=== PATIENT | male | born 1940 | race Caucasian/White ===

== ENCOUNTER 2017-10-29 13:05 | Day surgery (SDC) | payer MEDICARE ==
[~2017-10-29] VITALS: Ht 180.3 cm; Wt 81.0 kg
[2017-10-29] VITALS (12 sets, daily range): BP systolic 62–139; BP diastolic 52–98
[~2017-10-29 13:05] MED LIST: ceFAZolin INJECTION 1,000 MG in NS (IVPB) 50 ML IV SCH
[2017-10-29 13:43] LABS: HEMOGLOBIN 14.2 G/DL (13.3-17.7); MEAN PLATELET VOLUME 11.3 FL (7.4-10.4); RED BLOOD COUNT 4.52 10^6/uL (4.35-5.85); RED CELL DISTRIBUTION WIDTH 13.4 % (10.0-14.5); WHITE BLOOD COUNT 19.6 10^3/uL (4.3-11.0)
--- NOTE | 2017-10-29 13:46 | Diagnostic Imaging Report ---
EXAMINATION: PA and lateral chest obtained at 148. INDICATION: Preop pacemaker insertion. There are no prior studies available for comparison. The heart size is within normal limits. The lungs are clear. There is no sign of failure, pneumonia or a pleural effusion to indicate an acute abnormality. There are a few coarse bronchovascular markings in the right infrahilar region. These are probably long-standing in nature. If previous studies are available they would be helpful for comparison. The mediastinum is not widened. The osseous structures are intact. IMPRESSION: 1. There is no evidence for an acute cardiopulmonary abnormality. 2. If previous studies are available they would be helpful comparison. Dictated by: Dictated on workstation # [id number]
[2017-10-29 13:56] LABS: PROTHROMBIN TIME PATIENT 13.6 SEC (12.2-14.7)
[2017-10-29 14:06] LABS: ALANINE AMINOTRANSFERASE 119 U/L (0-55); ALBUMIN 4.2 GM/DL (3.2-4.5); ALKALINE PHOSPHATASE 57 U/L (40-136); BILIRUBIN,TOTAL 0.6 MG/DL (0.1-1.0); BUN/CREATININE RATIO 19; CALCIUM 9.5 MG/DL (8.5-10.1); CARBON DIOXIDE 26 MMOL/L (21-32); CHLORIDE 110 MMOL/L (98-107); GFR ESTIMATED > 60; GLUCOSE 109 MG/DL (70-105); POTASSIUM 4.8 MMOL/L (3.6-5.0); SODIUM 142 MMOL/L (135-145); TOTAL PROTEIN 6.9 GM/DL (6.4-8.2)
[2017-10-29] MEDS ORDERED: [UNRECOGNIZED DRUG - REMARK] INJ (15:05)
[2017-10-29] MEDS ORDERED: ESOM20CA58 PO (15:05)
[2017-10-29] MEDS ORDERED: NAPR1TAB25 PO (15:05)
[2017-10-29] MEDS ORDERED: ZINC50TA2 PO (15:05)
[2017-10-29] MEDS ORDERED: SILD100T67 PO (15:11)
[2017-10-29] MEDS ORDERED: NS IV 1000 ML 1,000 ML IV SCH ×2 (16:15→20:26)
[2017-10-29] MEDS ORDERED: CATHETER FLUSH 10 ML SYR IV PRN (16:15)
[2017-10-29] MEDS ORDERED: DOXYCYCLINE INJECTION 100 MG in NS (IVPB) 100 ML IV NR (16:15)
--- NOTE | 2017-10-29 17:06 | Diagnostic Imaging Report ---
EXAM: Right upper quadrant ultrasound. DATE: October 29, 2017. COMPARISON: Ultrasound abdomen complete, 06/06/2009. INDICATION: 77-year-old male, elevated liver enzymes. PROCEDURE: Two-dimensional grayscale and color doppler ultrasound examination of the right upper quadrant is performed. FINDINGS: Liver: The liver is of normal size and echotexture without solid or cystic masses. The main portal vein is patent. Bile ducts and gallbladder: There is no pericholecystic fluid, or gallstones. The gallbladder wall measures 0.5 cm. There is no intrahepatic or extrahepatic biliary ductal dilation. The common bile duct measures 0.4 cm. Right kidney: Unremarkable right kidney. No hydronephrosis. The right kidney measures 11.1 cm x 5.0 cm x 4.8 cm. Pancreas: Normal visualized pancreas. IMPRESSION: 1. Entirely nonspecific mild gallbladder wall thickening without evidence of cholelithiasis or gallbladder distention. 2. Unremarkable sonographic appearance of the liver parenchyma. 3. No biliary ductal dilation. Dictated by: Dictated on workstation # [id number]
--- OUTSIDE RECORDS SUMMARY | 2017-10-29 17:36 | XMS REPORT | CCD ---
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 Name Role Phone PP Unavailable CCM Unavailable Summary Purpose Interface Exchange Insurance Providers Payer name Policy type / Coverage type Covered libertarian ID Effective Begin Date Effective End Date WPS Medicare Part B Medicare Part B [id number] Unknown Unknown [facility] Medicare Part B [id number] Unknown Unknown Family history Runs in the family Diagnosis Age At Onset Aneurysm Unknown Father Diagnosis Age At Onset Pancratic cancer Unknown Aneursym Unknown Mother Diagnosis Age At Onset Alzheimer's Disease Unknown Social History Social History Element Codes Description Effective Dates Tobacco history SNOMED CT: 713349148 Unknown if ever smoked 10/18/2015 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 Marital status Unknown 09/26/2014 Alcohol history Unknown occasionally drinks alcohol 09/26/2014 Allergies, Adverse Reactions, Alerts Allergies, Adverse Reactions, Alerts data not found Past Medical History Illness Codes Condition Status Onset Date Resolved Date Primary osteoarthritis, 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 ICD-10: M19.012 Active 04/21/2016 Unknown Primary osteoarthritis, right shoulder ICD-9: 715.91 ICD-10: M19.011 Active 04/21/2016 Unknown Encounter for general adult medical examination without abnormal findings ICD-9: V70.0 ICD-10: Z00.00 Active 10/17/2015 Unknown Encounter for immunization ICD-9: V04.81 ICD-10: Z23 Active 03/07/2015 Unknown Encounter for screening for malignant neoplasm of prostate ICD-9: V76.44 ICD-10: Z12.5 Active 03/19/2017 Unknown Male erectile dysfunction, unspecified ICD-9: 607.84 ICD-10: N52.9 Active 03/19/2017 Unknown Mixed hyperlipidemia ICD-9: 272.2 ICD-10: E78.2 Active 03/19/2017 Unknown Encounter for general adult medical examination without abnormal findings ICD-9: V70.9 ICD-10: Z00.00 Active 05/27/2016 Unknown Encounter for general adult medical examination with abnormal findings ICD-9: V70.0 ICD-10: Z00.01 Active 04/21/2016 Unknown Bicipital tendinitis, left shoulder ICD-9: 726.12 ICD-10: M75.22 Active 06/13/2015 Unknown Generalized anxiety disorder ICD-9: 300.00 ICD-10: F41.1 Active 09/25/2014 Unknown Weight loss ICD-9: 783.21 Active 10/23/2014 Unknown Depression Unknown Active 09/26/2014 Unknown Acid reflux ICD-9: 530.81 Active 09/25/2014 Unknown Anxiety ICD-9: 300.00 Active 09/25/2014 Unknown Depression ICD-9: 311 Active 09/25/2014 Unknown Problems Condition Codes Effective Dates Condition Status Primary osteoarthritis, 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 ICD-10: M19.012 04/21/2016 Active Primary osteoarthritis, right shoulder ICD-9: 715.91 ICD-10: M19.011 04/21/2016 Active Encounter for general adult medical examination without abnormal findings ICD-9: V70.0 ICD-10: Z00.00 10/17/2015 Active Encounter for immunization ICD-9: V04.81 ICD-10: Z23 03/07/2015 Active Encounter for screening for malignant neoplasm of prostate ICD-9: V76.44 ICD-10: Z12.5 03/19/2017 Active Male erectile dysfunction, unspecified ICD-9: 607.84 ICD-10: N52.9 03/19/2017 Active Mixed hyperlipidemia ICD-9: 272.2 ICD-10: E78.2 03/19/2017 Active Encounter for general adult medical examination without abnormal findings ICD-9: V70.9 ICD-10: Z00.00 05/27/2016 Active Encounter for general adult medical examination with abnormal findings ICD-9: V70.0 ICD-10: Z00.01 04/21/2016 Active Bicipital tendinitis, left shoulder ICD-9: 726.12 ICD-10: M75.22 06/13/2015 Active Generalized anxiety disorder ICD-9: 300.00 ICD-10: F41.1 09/25/2014 Active Weight loss ICD-9: 783.21 10/23/2014 Active Depression Unknown 09/26/2014 Active Acid reflux ICD-9: 530.81 09/25/2014 Active Anxiety ICD-9: 300.00 09/25/2014 Active Depression ICD-9: 311 09/25/2014 Active Medications Medication Codes Instructions Start Date Stop Date Status Fill Instructions Zithromax Z-Julius 250 mg tablet RxNorm: 768896 Tablet(s) PO UD No Stop Date Active Z julius Kenalog 40 mg/mL suspension for injection RxNorm: 1604137 1 Milliliter(s) Inj 06/05/2017 06/05/2017 Inactive Kenalog 40 mg/mL suspension for injection RxNorm: 9620239 2 Milliliter(s) Inj 11/25/2016 11/25/2016 Inactive Viagra 100 mg tablet RxNorm: 742235 1/2-1 Tablet(s) PO PRN prior to sexual encounter 08/08/2016 No Stop Date Active Viagra 100 mg tablet RxNorm: 395810 1 Tablet(s) PO PRN 201508/07/2016 Inactive Voltaren 1 % topical gel RxNorm: 878062 2 Gram(s) TOP TID 06/1407/13/2015 Inactive Zithromax Z-Julius 250 mg tablet RxNorm: 395449 Tablet(s) PO 05/0206/13/2015 Inactive Z julius alprazolam 0.5 mg tablet RxNorm: 105383 1 Tablet(s) PO Q6 as needed 10/24/2014 04/21/2016 Inactive [SAVINGS FOR NON-COVERED DRUGS -- [id number], PCN: [id number], Group : XXXXX, ID# [id number], Questions: . THIS IS NOT INSURANCE.] escitalopram 5 mg tablet RxNorm: 015424 1 Tablet(s) PO daily 10/24/2014 Inactive [SAVINGS FOR NON-COVERED DRUGS -- [id number], PCN: [id number], Group: XXXXX , ID# [id number], Questions: . THIS IS NOT INSURANCE.] escitalopram 10 mg tablet RxNorm: 991936 1 Tablet(s) PO daily 09/26/2014 10/24/2014 Inactive disregard 5mg RX-have him take 1/2 tab x 1 week then increase to a full tab daily Zithromax Z-Julius 250 mg tablet RxNorm: 274482 Tablet(s) PO No Start Date 05/01/2015 Inactive Z julius alprazolam 0.5 mg tablet RxNorm: 400852 1 Tablet(s) PO Q6 as needed No Start Date 10/23/2014 Inactive Medication Administered Medication Codes Instructions Start Date Status Kenalog 40 mg/mL suspension for injection RxNorm: 0920988 1Milliliter 06/05/2017 No longer Active Kenalog 40 mg/mL suspension for injection RxNorm: 2325499 2Milliliter 11/25/2016 No longer Active Immunizations Vaccine Codes Date Status Influenza CVX: 141 03/19/2017 completed Influenza CVX: 141 03/08/2015 completed Assessments Condition Codes Effective Dates Primary osteoarthritis, right shoulder ICD-10: M19.011 ICD-9: 715.91 06/05/2017 Primary osteoarthritis, left shoulder ICD-10: M19.012 ICD-9: 715.91 06/05/2017 Male erectile dysfunction, unspecified ICD-10: N52.9 ICD-9: 607.84 03/19/2017 Encounter for screening for malignant neoplasm of prostate ICD-10: Z12.5 ICD-9: V76.44 03/19/2017 Mixed hyperlipidemia ICD-10: E78.2 ICD-9: 272.2 03/19/2017 Encounter for general adult medical examination without abnormal findings ICD-10: Z00.00 ICD-9: V70.0 03/19/2017 Encounter for immunization ICD-10: Z23 ICD-9: V04.81 03/19/2017 Encounter for general adult medical examination without abnormal findings ICD-10: Z00.00 ICD-9: V70.9 05/28/2016 Encounter for general adult medical examination with abnormal findings ICD-10: Z00.01 ICD-9: V70.0 04/22/2016 Bicipital tendinitis, left shoulder ICD-10: M75.22 ICD-9: 726.12 06/14/2015 Generalized anxiety disorder ICD-10: F41.1 ICD-9: 300.00 03/08/2015 Depression ICD-9: 311 10/24/2014 Weight loss ICD-9: 783.21 10/24/2014 Anxiety ICD-9: 300.00 10/24/2014 Acid reflux ICD-9: 530.81 09/26/2014 Reason For Visit Reason For Visit Effective Dates Notes shoulder pain 06/05/2017 well man exam (65+ years) 03/19/2017 shoulder pain 11/25/2016 Annual Medicare Wellness Exam 05/28/2016 shoulder pain 04/22/2016 well man exam (65+ years) 10/18/2015 depression 06/14/2015 weight loss 03/08/2015 weight loss 10/24/2014 weight loss 09/26/2014 Results Observation Observation Code Item Item Code Result Date Testosterone Kjd807 Testo 463.8 ng/dL 03/19/2017 Cbc With Differential Ord2 WBC 6.93 K/ul 03/19/2017 Cbc With Differential Ord2 RBC 4.81 M/ul 03/19/2017 Cbc With Differential Ord2 HGB 14.9 g/dl 03/19/2017 Cbc With Differential Ord2 Neut% 63.4 % 03/19/2017 Cbc With Differential Ord2 HCT 45.4 % 03/19/2017 Cbc With Differential Ord2 MCV 94.4 fl 03/19/2017 Cbc With Differential Ord2 Lymph% 23.4 % 03/19/2017 Cbc With Differential Ord2 MCH 31.0 pg 03/19/2017 Cbc With Differential Ord2 Mower% 9.4 % 03/19/2017 Cbc With Differential Ord2 MCHC 32.8 pg 03/19/2017 Cbc With Differential Ord2 Eos% 3.2 % 03/19/2017 Cbc With Differential Ord2 PLT 321 K/ul 03/19/2017 Cbc With Differential Ord2 Baso% 0.6 % 03/19/2017 Cbc With Differential Ord2 RDW 13.7 % 03/19/2017 Cbc With Differential Ord2 Neut ABS# 4.40 K/ul 03/19/2017 Cbc With Differential Ord2 Lymph ABS# 1.62 K/ul 03/19/2017 Cbc With Differential Ord2 Mower ABS# 0.7 K/ul 03/19/2017 Cbc With Differential Ord2 Eos ABS# 0.2 K/ul 03/19/2017 Cbc With Differential Ord2 Baso ABS# 0.0 K/ul 03/19/2017 Comp Metabolic Owc659 NA 138 mEq/L 03/19/2017 Comp Metabolic Idw864 K 4.4 mEq/L 03/19/2017 Comp Metabolic Bcj991 CL 102 mEq/L 03/19/2017 Comp Metabolic Zhz555 CO2 29.0 mEq/L 03/19/2017 Comp Metabolic Aes621 ANION GAP 11 03/19/2017 Comp Metabolic Feg991 GLUCOSE 99 mg/dL 03/19/2017 Comp Metabolic Yxf467 Creat 1.0 mg/dL 03/19/2017 Comp Metabolic Wdl202 eGFR 78 ml/min/1.73m2 03/19/2017 Comp Metabolic Kbq705 BUN 16 mg/dL 03/19/2017 Comp Metabolic Jiu091 B/C Ratio 16.2 Ratio 03/19/2017 Comp Metabolic Tjj407 CALCIUM 9.4 mg/dL 03/19/2017 Comp Metabolic Yzj615 ALK PHOS 50 U/L 03/19/2017 Comp Metabolic Uap128 AST(SGOT) 23 U/L 03/19/2017 Comp Metabolic Vxc527 ALT(SGPT) 19 U/L 03/19/2017 Comp Metabolic Ima205 BILI T 0.8 mg/dL 03/19/2017 Comp Metabolic Mxk358 ALBUMIN 4.2 g/dL 03/19/2017 Comp Metabolic Xiy252 TPRO 6.4 g/dL 03/19/2017 Comp Metabolic Tdk179 GLOB 2.2 g/dL 03/19/2017 Comp Metabolic Phg449 A/G Ratio 1.9 Ratio 03/19/2017 Comp Metabolic Xhh343 Osmo 277 mOsmo 03/19/2017 Lipid Ord30 CHOL 195 mg/dL 03/19/2017 Lipid Ord30 HDL 47.0 mg/dl 03/19/2017 Lipid Ord30 TRIG 96 mg/dL 03/19/2017 Lipid Ord30 LDL 129 mg/dL 03/19/2017 Lipid Ord30 C/HDL 4.1 Ratio 03/19/2017 Total Psa Ord10 PSA 0.48 ng/mL 03/19/2017 Cbc With Differential Ord2 WBC 6.45 K/ul 04/22/2016 Cbc With Differential Ord2 RBC 4.89 M/ul 04/22/2016 Cbc With Differential Ord2 HGB 14.9 g/dl 04/22/2016 Cbc With Differential Ord2 Neut% 55.6 % 04/22/2016 Cbc With Differential Ord2 HCT 45.4 % 04/22/2016 Cbc With Differential Ord2 MCV 92.8 fl 04/22/2016 Cbc With Differential Ord2 Lymph% 32.2 % 04/22/2016 Cbc With Differential Ord2 MCH 30.5 pg 04/22/2016 Cbc With Differential Ord2 Mower% 9.8 % 04/22/2016 Cbc With Differential Ord2 MCHC 32.8 pg 04/22/2016 Cbc With Differential Ord2 Eos% 1.9 % 04/22/2016 Cbc With Differential Ord2 PLT 328 K/ul 04/22/2016 Cbc With Differential Ord2 Baso% 0.5 % 04/22/2016 Cbc With Differential Ord2 RDW 13.8 % 04/22/2016 Cbc With Differential Ord2 Neut ABS# 3.59 K/ul 04/22/2016 Cbc With Differential Ord2 Lymph ABS# 2.08 K/ul 04/22/2016 Cbc With Differential Ord2 Mower ABS# 0.6 K/ul 04/22/2016 Cbc With Differential Ord2 Eos ABS# 0.1 K/ul 04/22/2016 Cbc With Differential Ord2 Baso ABS# 0.0 K/ul 04/22/2016 Comp Metabolic Xko605 NA 136 mEq/L 04/22/2016 Comp Metabolic Chs866 K 4.6 mEq/L 04/22/2016 Comp Metabolic Pqy842 CL 101 mEq/L 04/22/2016 Comp Metabolic Qeq574 CO2 28.0 mEq/L 04/22/2016 Comp Metabolic Zor898 ANION GAP 12 04/22/2016 Comp Metabolic Hah402 GLUCOSE 96 mg/dL 04/22/2016 Comp Metabolic Jwo989 Creat 1.1 mg/dL 04/22/2016 Comp Metabolic Xoq344 eGFR 71 ml/min/1.73m2 04/22/2016 Comp Metabolic Mme962 BUN 18 mg/dL 04/22/2016 Comp Metabolic Uwa286 B/C Ratio 16.7 Ratio 04/22/2016 Comp Metabolic Dyi115 CALCIUM 9.4 mg/dL 04/22/2016 Comp Metabolic Scj778 ALK PHOS 63 U/L 04/22/2016 Comp Metabolic Isf125 AST(SGOT) 19 U/L 04/22/2016 Comp Metabolic Yru679 ALT(SGPT) 18 U/L 04/22/2016 Comp Metabolic Obi800 BILI T 0.7 mg/dL 04/22/2016 Comp Metabolic Jbc389 ALBUMIN 4.2 g/dL 04/22/2016 Comp Metabolic Snh680 TPRO 7.0 g/dL 04/22/2016 Comp Metabolic Nos683 GLOB 2.8 g/dL 04/22/2016 Comp Metabolic Umt189 A/G Ratio 1.5 Ratio 04/22/2016 Comp Metabolic Ykx058 Osmo 274 mOsmo 04/22/2016 Tsh Ord6 hTSH II 0.92 uIU/mL 04/22/2016 Lipid Ord30 CHOL 203 mg/dL 04/22/2016 Lipid Ord30 HDL 52.0 mg/dl 04/22/2016 Lipid Ord30 TRIG 69 mg/dL 04/22/2016 Lipid Ord30 LDL 137 mg/dL 04/22/2016 Lipid Ord30 C/HDL 3.9 Ratio 04/22/2016 Total Psa Ord10 PSA 0.40 ng/mL 04/22/2016 Comp Metabolic Ghz980 NA 134 mEq/L 02/27/2015 Comp Metabolic Nxd347 K 4.2 mEq/L 02/27/2015 Comp Metabolic Qlg220 CL 101 mEq/L 02/27/2015 Comp Metabolic Klj562 CO2 29.0 mEq/L 02/27/2015 Comp Metabolic Inx122 ANION GAP 8 02/27/2015 Comp Metabolic Euk319 GLUCOSE 130 mg/dL 02/27/2015 Comp Metabolic Qlc221 Creat 1.0 mg/dL 02/27/2015 Comp Metabolic Mne846 eGFR 80 ml/min/1.73m2 02/27/2015 Comp Metabolic Wbo001 BUN 22 mg/dL 02/27/2015 Comp Metabolic Wfx346 B/C Ratio 22.4 Ratio 02/27/2015 Comp Metabolic Ykq862 CALCIUM 9.3 mg/dL 02/27/2015 Comp Metabolic Mub006 ALK PHOS 64 U/L 02/27/2015 Comp Metabolic Iff193 AST(SGOT) 19 U/L 02/27/2015 Comp Metabolic Qhl457 ALT(SGPT) 18 U/L 02/27/2015 Comp Metabolic Tzo762 BILI T 0.7 mg/dL 02/27/2015 Comp Metabolic Shd359 ALBUMIN 4.2 g/dL 02/27/2015 Comp Metabolic Qjc593 TPRO 6.6 g/dL 02/27/2015 Comp Metabolic Fgu255 GLOB 2.4 g/dL 02/27/2015 Comp Metabolic Kta556 A/G Ratio 1.8 Ratio 02/27/2015 Comp Metabolic Lpa924 Osmo 273 mOsmo 02/27/2015 Cbc With Differential Ord2 WBC 6.4 K/uL 02/27/2015 Cbc With Differential Ord2 LYM 2.1 K/uL 02/27/2015 Cbc With Differential Ord2 LYM% 33.5 % 02/27/2015 Cbc With Differential Ord2 NEUT/GRAN 3.8 K/uL 02/27/2015 Cbc With Differential Ord2 NEUT/GRAN % 59.9 % 02/27/2015 Cbc With Differential Ord2 MID 0.4 K/uL 02/27/2015 Cbc With Differential Ord2 MID% 6.6 % 02/27/2015 Cbc With Differential Ord2 RBC 4.74 M/uL 02/27/2015 Cbc With Differential Ord2 HGB 14.2 g/dL 02/27/2015 Cbc With Differential Ord2 HCT 44.8 % 02/27/2015 Cbc With Differential Ord2 MCV 95 fL 02/27/2015 Cbc With Differential Ord2 MCH 30 pg 02/27/2015 Cbc With Differential Ord2 MCHC 32 g/dL 02/27/2015 Cbc With Differential Ord2 PLT 320 K/uL 02/27/2015 Cbc With Differential Ord2 RDW 14.3 % 02/27/2015 Total Psa Ord10 PSA 0.46 ng/mL 02/27/2015 Tsh Ord6 hTSH II 1.60 uIU/mL 02/27/2015 Lipid Ord30 CHOL 200 mg/dL 02/27/2015 Lipid Ord30 HDL 55.0 mg/dl 02/27/2015 Lipid Ord30 TRIG 73 mg/dL 02/27/2015 Lipid Ord30 LDL 130 mg/dL 02/27/2015 Lipid Ord30 C/HDL 3.6 Ratio 02/27/2015 Review of Systems System Result Effective Dates Constitutional No recent illness 2017 Constitutional No night sweats 2017 Constitutional No chills 06/05/2017 Constitutional No diaphoresis 06/05/2017 Constitutional No fever 06/05/2017 Musculoskeletal joint complaint 2017 Eyes No eye erythema 06/05/2017 Ears/Nose/Throat/Neck No nasal discharge 06/05/2017 Neurologic No alteration of consciousness 06/05/2017 Neurologic No mental status change 2017 Constitutional No recent illness 2016 Constitutional No chills 03/19/2017 Constitutional No diaphoresis 03/19/2017 Constitutional No fever 03/19/2017 Eyes No blindness 03/19/2017 Ears/Nose/Throat/Neck No nasal allergies 03/19/2017 Ears/Nose/Throat/Neck No nasal discharge 03/19/2017 Ears/Nose/Throat/Neck No postnasal drip 03/19/2017 Cardiovascular No chest pain/pressure Cardiovascular No dyspnea 03/19/2017 Respiratory No chest congestion 2016 Respiratory No cough 03/19/2017 Respiratory No dyspnea 03/19/2017 Gastrointestinal abdominal pain 2016 Gastrointestinal No constipation 2016 Gastrointestinal No diarrhea 03/19/2017 Gastrointestinal No nausea 03/19/2017 Gastrointestinal No vomiting 03/19/2017 Musculoskeletal joint complaint 2016 Dermatologic No rash 03/19/2017 Neurologic No alteration of consciousness 03/19/2017 Neurologic No mental status change 2016 Psychiatric No anxiety 03/19/2017 Endocrine No dry or coarse skin 2016 Endocrine No cold sensitivity 03/19/2017 Constitutional No recent illness 2016 Constitutional No anorexia 11/25/2016 Constitutional No night sweats 2016 Constitutional No chills 11/25/2016 Constitutional No diaphoresis 11/25/2016 Constitutional No fatigue 11/25/2016 Constitutional No fever 11/25/2016 Constitutional No insomnia 11/25/2016 Constitutional No malaise 11/25/2016 Constitutional No weight loss 11/25/2016 Constitutional No weight gain 11/25/2016 Musculoskeletal joint complaint 2016 Constitutional No recent illness 2015 Constitutional No chills 05/28/2016 Constitutional No diaphoresis 05/28/2016 Constitutional No fever 05/28/2016 Eyes No eye erythema 05/28/2016 Ears/Nose/Throat/Neck No nasal allergies 05/28/2016 Ears/Nose/Throat/Neck No nasal discharge 05/28/2016 Ears/Nose/Throat/Neck No postnasal drip 05/28/2016 Cardiovascular No chest pain/pressure Cardiovascular No dyspnea 05/28/2016 Respiratory No chest congestion 2015 Respiratory No cough 05/28/2016 Respiratory No dyspnea 05/28/2016 Gastrointestinal No abdominal pain 2015 Gastrointestinal No constipation 2015 Gastrointestinal No diarrhea 05/28/2016 Gastrointestinal No nausea 05/28/2016 Gastrointestinal No vomiting 05/28/2016 Musculoskeletal No joint complaint 2015 Dermatologic No rash 05/28/2016 Neurologic No alteration of consciousness 05/28/2016 Neurologic No mental status change 2015 Musculoskeletal joint complaint 2015 Constitutional No recent illness 2015 Constitutional No anorexia 04/22/2016 Constitutional No night sweats 2015 Constitutional No chills 04/22/2016 Constitutional No diaphoresis 04/22/2016 Constitutional No fatigue 04/22/2016 Constitutional No fever 04/22/2016 Constitutional No insomnia 04/22/2016 Constitutional No malaise 04/22/2016 Constitutional No weight loss 04/22/2016 Constitutional No weight gain 04/22/2016 Constitutional No obesity 04/22/2016 Eyes No vision change 04/22/2016 Ears/Nose/Throat/Neck No headache 2015 Ears/Nose/Throat/Neck No nasal allergies 04/22/2016 Ears/Nose/Throat/Neck No nasal discharge 04/22/2016 Cardiovascular No chest pain/pressure Cardiovascular No dyspnea 04/22/2016 Respiratory No chest congestion 2015 Respiratory No cigarette smoking 2015 Respiratory No cough 04/22/2016 Respiratory No dyspnea on exertion 2015 Respiratory No dyspnea 04/22/2016 Gastrointestinal No constipation 2015 Gastrointestinal No diarrhea 04/22/2016 Genitourinary/Nephrology No dysuria 04/22 Musculoskeletal No muscle weakness 2015 Musculoskeletal No myalgias 04/22/2016 Dermatologic No rash 04/22/2016 Dermatologic No sores 04/22/2016 Psychiatric No anxiety 04/22/2016 Psychiatric No depression 04/22/2016 Psychiatric No suicidality 04/22/2016 Musculoskeletal shoulder pain 04/22/2016 Constitutional No recent illness 2015 Constitutional No anorexia 10/18/2015 Constitutional No night sweats 2015 Constitutional No chills 10/18/2015 Constitutional No diaphoresis 10/18/2015 Constitutional No fatigue 10/18/2015 Constitutional No fever 10/18/2015 Constitutional No insomnia 10/18/2015 Constitutional No malaise 10/18/2015 Constitutional No weight loss 10/18/2015 Constitutional No weight gain 10/18/2015 Constitutional No obesity 10/18/2015 Psychiatric No depression 10/18/2015 Psychiatric No anxiety 10/18/2015 Psychiatric No suicidality 10/18/2015 Eyes No vision change 10/18/2015 Cardiovascular No dyspnea 10/18/2015 Cardiovascular No chest pain/pressure Respiratory No cough 10/18/2015 Respiratory No cigarette smoking 2015 Respiratory No chest congestion 2015 Respiratory No dyspnea on exertion 2015 Respiratory No dyspnea 10/18/2015 Gastrointestinal No diarrhea 10/18/2015 Gastrointestinal No constipation 2015 Genitourinary/Nephrology No dysuria 10/17 Musculoskeletal joint complaint 2015 Musculoskeletal No muscle weakness 2015 Musculoskeletal No myalgias 10/18/2015 Dermatologic No rash 10/18/2015 Dermatologic No sores 10/18/2015 Ears/Nose/Throat/Neck No headache 2015 Ears/Nose/Throat/Neck No nasal allergies 10/18/2015 Ears/Nose/Throat/Neck No nasal discharge 10/18/2015 Constitutional No recent illness 2015 Constitutional No anorexia 06/14/2015 Constitutional No night sweats 2015 Constitutional No chills 06/14/2015 Constitutional No diaphoresis 06/14/2015 Constitutional No fatigue 06/14/2015 Constitutional No fever 06/14/2015 Constitutional No insomnia 06/14/2015 Constitutional No malaise 06/14/2015 Ears/Nose/Throat/Neck No dental pain Ears/Nose/Throat/Neck No dizziness 2015 Ears/Nose/Throat/Neck No dysphagia 2015 Ears/Nose/Throat/Neck No headache 2015 Ears/Nose/Throat/Neck No hearing loss Ears/Nose/Throat/Neck No nasal allergies 06/14/2015 Ears/Nose/Throat/Neck No sore throat Ears/Nose/Throat/Neck No postnasal drip 06/14/2015 Ears/Nose/Throat/Neck No sinus congestion 06/14/2015 Cardiovascular No chest pain/pressure Cardiovascular No dyspnea 06/14/2015 Cardiovascular No edema 06/14/2015 Cardiovascular No exercise intolerance Cardiovascular No fatigue 06/14/2015 Cardiovascular No near-syncope/dizziness 06/14/2015 Respiratory No chest tightness 2015 Respiratory No cough 06/14/2015 Respiratory No dyspnea 06/14/2015 Respiratory No pedal edema 06/14/2015 Gastrointestinal No abdominal pain 2015 Gastrointestinal No constipation 2015 Gastrointestinal No diarrhea 06/14/2015 Gastrointestinal gas and bloating 2015 Gastrointestinal No gastroesophageal reflux 06/14/2015 Gastrointestinal No nausea 06/14/2015 Gastrointestinal No vomiting 06/14/2015 Genitourinary/Nephrology No dysuria 06/14 Genitourinary/Nephrology No nocturia Genitourinary/Nephrology No urinary incontinence 06/14/2015 Musculoskeletal No stiffness 06/14/2015 Musculoskeletal No swelling 06/14/2015 Musculoskeletal No muscle weakness 2015 Musculoskeletal No myalgias 06/14/2015 Dermatologic No rash 06/14/2015 Dermatologic No sores 06/14/2015 Dermatologic No scar 06/14/2015 Neurologic No alteration of consciousness 06/14/2015 Neurologic No dizziness 06/14/2015 Neurologic No headache 06/14/2015 Neurologic No neck pain 06/14/2015 Neurologic No syncope 06/14/2015 Psychiatric No anxiety 06/14/2015 Psychiatric No depression 06/14/2015 Constitutional No recent illness 2014 Constitutional No anorexia 03/08/2015 Constitutional No night sweats 2014 Constitutional No chills 03/08/2015 Constitutional No diaphoresis 03/08/2015 Constitutional No fatigue 03/08/2015 Constitutional No fever 03/08/2015 Constitutional No insomnia 03/08/2015 Constitutional No malaise 03/08/2015 Constitutional weight loss 03/08/2015 Constitutional No weight gain 03/08/2015 Eyes No eye discharge 03/08/2015 Eyes No eye erythema 03/08/2015 Ears/Nose/Throat/Neck No dizziness 2014 Ears/Nose/Throat/Neck No headache 2014 Cardiovascular No chest pain/pressure 12/2014 Cardiovascular No dyspnea 03/08/2015 Cardiovascular No edema 03/08/2015 Respiratory No cough 03/08/2015 Gastrointestinal No constipation 2014 Gastrointestinal No diarrhea 03/08/2015 Gastrointestinal gas and bloating 2014 Genitourinary/Nephrology No dysuria 03/08 Dermatologic No rash 03/08/2015 Neurologic No alteration of consciousness 03/08/2015 Psychiatric No anxiety 03/08/2015 Psychiatric No depression 03/08/2015 Eyes No blindness 03/08/2015 Eyes No vision change 03/08/2015 Ears/Nose/Throat/Neck No dental pain 12/2014 Ears/Nose/Throat/Neck No dysphagia 2014 Ears/Nose/Throat/Neck No hearing loss 12/2014 Ears/Nose/Throat/Neck No nasal allergies 03/08/2015 Ears/Nose/Throat/Neck No sore throat 12/2014 Ears/Nose/Throat/Neck No postnasal drip 03/08/2015 Ears/Nose/Throat/Neck No sinus congestion 03/08/2015 Cardiovascular No exercise intolerance Cardiovascular No fatigue 03/08/2015 Cardiovascular No near-syncope/dizziness 03/08/2015 Respiratory No chest tightness 2014 Respiratory No dyspnea 03/08/2015 Respiratory No pedal edema 03/08/2015 Gastrointestinal No abdominal pain 2014 Gastrointestinal No gastroesophageal reflux 03/08/2015 Gastrointestinal No nausea 03/08/2015 Gastrointestinal No vomiting 03/08/2015 Genitourinary/Nephrology No nocturia 12/2014 Genitourinary/Nephrology No urinary incontinence 03/08/2015 Musculoskeletal No stiffness 03/08/2015 Musculoskeletal No swelling 03/08/2015 Musculoskeletal No muscle weakness 2014 Musculoskeletal No myalgias 03/08/2015 Dermatologic No sores 03/08/2015 Dermatologic No scar 03/08/2015 Neurologic No dizziness 03/08/2015 Neurologic No headache 03/08/2015 Neurologic No neck pain 03/08/2015 Neurologic No syncope 03/08/2015 Constitutional No recent illness 2014 Constitutional No anorexia 10/24/2014 Constitutional No night sweats 2014 Constitutional No chills 10/24/2014 Constitutional No diaphoresis 10/24/2014 Constitutional No fatigue 10/24/2014 Constitutional No fever 10/24/2014 Constitutional insomnia 10/24/2014 Constitutional No malaise 10/24/2014 Constitutional weight loss 10/24/2014 Constitutional No weight gain 10/24/2014 Eyes No eye discharge 10/24/2014 Eyes No eye erythema 10/24/2014 Ears/Nose/Throat/Neck No dizziness 2014 Ears/Nose/Throat/Neck No headache 2014 Cardiovascular No chest pain/pressure Cardiovascular No dyspnea 10/24/2014 Cardiovascular No edema 10/24/2014 Respiratory No cough 10/24/2014 Gastrointestinal gas and bloating 2014 Genitourinary/Nephrology No dysuria 10/24 Gastrointestinal No constipation 2014 Gastrointestinal No diarrhea 10/24/2014 Dermatologic No rash 10/24/2014 Neurologic No alteration of consciousness 10/24/2014 Psychiatric anxiety 10/24/2014 Psychiatric depression 10/24/2014 Constitutional No recent illness 2014 Constitutional anorexia 09/26/2014 Constitutional No night sweats 2014 Constitutional fatigue 09/26/2014 Constitutional No fever 09/26/2014 Constitutional insomnia 09/26/2014 Constitutional weight loss 09/26/2014 Constitutional No weight gain 09/26/2014 Eyes No eye discharge 09/26/2014 Eyes No eye erythema 09/26/2014 Psychiatric anxiety 09/26/2014 Psychiatric depression 09/26/2014 Neurologic No alteration of consciousness 09/26/2014 Dermatologic No rash 09/26/2014 Musculoskeletal No joint complaint 2014 Genitourinary/Nephrology No dysuria 09/26 Gastrointestinal No constipation 2014 Gastrointestinal No diarrhea 09/26/2014 Gastrointestinal No nausea 09/26/2014 Gastrointestinal No vomiting 09/26/2014 Cardiovascular No chest pain/pressure Respiratory No productive sputum 2014 Ears/Nose/Throat/Neck No dizziness 2014 Ears/Nose/Throat/Neck No headache 2014 Physical Exam Exam Name System Name Item Name Status Result Effective Dates Notes Full Exam - General 1994 Constitutional general appearance Development: well developed 06/05/2017 None Full Exam - General 1994 Constitutional general appearance Development: appears stated age 0106/05/2017 None Full Exam - General 1994 Constitutional general appearance Overall: well developed 06/05/2017 None Full Exam - General 1994 Constitutional general appearance Overall: in no acute distress 06/05/2017 None Full Exam - General 1994 Constitutional general appearance Overall: well nourished 06/05/2017 None Full Exam - General 1994 Constitutional general appearance Hygiene/Attention to Grooming: good hygiene 06/05/2017 None Full Exam - General 1994 Eyes conjunctiva /eyelids Overall: conjunctiva clear 06/05/2017 None Full Exam - General 1994 Eyes conjunctiva /eyelids Overall: cornea clear 06/05/2017 None Full Exam - General 1994 Eyes conjunctiva /eyelids Overall: eyelids normal 06/05/2017 None Full Exam - General 1994 Eyes pupils and irises Overall: pupils equal, round, reactive to light and accomodation 06/05/2017 None Full Exam - General 1994 Ears/Nose/Throat oral cavity/pharynx/larynx Overall: oral mucosa clear 06/05/2017 None Full Exam - General 1994 Ears/Nose/Throat oral cavity/pharynx/larynx Overall: oropharyngeal mucosa clear 06/05/2017 None Full Exam - General 1994 Ears/Nose/Throat oral cavity/pharynx/larynx Overall: hypopharynx benign 06/05/2017 None Full Exam - General 1994 Ears/Nose/Throat oral cavity/pharynx/larynx Overall: no masses 06/05/2017 None Full Exam - General 1994 Respiratory auscultation Overall: breath sounds clear bilaterally 06/05/2017 None Full Exam - General 1994 Respiratory respiratory effort/rhythm Overall: no retractions 06/05/2017 None Full Exam - General 1994 Respiratory respiratory effort/rhythm Overall: normal rate 06/05/2017 None Full Exam - General 1994 Cardiovascular extremities Overall: no clubbing 06/05/2017 None Full Exam - General 1994 Cardiovascular auscultation of heart Overall: regular rate 06/05/2017 None Full Exam - General 1994 Cardiovascular auscultation of heart Overall: normal heart sounds 06/05/2017 None Full Exam - General 1994 Musculoskeletal upper extremity Palpation - shoulder: glenohumeral joint tenderness 06/05/2017 None Full Exam - General 1994 Musculoskeletal upper extremity Palpation - shoulder: acromioclavicular joint tenderness 06/05/2017 None Full Exam - General 1994 Musculoskeletal spine, ribs and pelvis Overall: spine benign 06/05/2017 None Full Exam - General 1994 Musculoskeletal spine, ribs and pelvis Overall: sacroiliac joint benign 06/05/2017 None Full Exam - General 1994 Musculoskeletal spine, ribs and pelvis Overall: good posture 06/05/2017 None Full Exam - General 1994 Musculoskeletal head and neck Overall: head atraumatic 06/05/2017 None Full Exam - General 1994 Musculoskeletal head and neck Overall: cervical spine benign 06/05/2017 None Full Exam - General 1994 Neurologic cranial nerves Overall: crainial nerves 2 - 12 grossly intact 06/05/2017 None Full Exam - General 1994 Psychiatric orientation/consciousness Overall: oriented to person, place and time 06/05/2017 None Full Exam - General 1994 Psychiatric mood and affect Overall: normal mood and affect 06/05/2017 None Full Exam - General 1994 Psychiatric mood and affect Mood: happy 06/05/2017 None Full Exam - General 1994 Psychiatric appearance Overall: well-groomed, good eye contact 06/05/2017 None Full Exam - General 1994 Constitutional general appearance Overall: well developed 03/19/2017 None Full Exam - General 1994 Constitutional general appearance Overall: in no acute distress 03/19/2017 None Full Exam - General 1994 Constitutional general appearance Overall: well nourished 03/19/2017 None Full Exam - General 1994 Eyes conjunctiva /eyelids Overall: conjunctiva clear 03/19/2017 None Full Exam - General 1994 Eyes conjunctiva /eyelids Overall: eyelids normal 03/19/2017 None Full Exam - General 1994 Eyes pupils and irises Overall: pupils equal, round, reactive to light and accomodation 03/19/2017 None Full Exam - General 1994 Ears/Nose/Throat otoscopic exam Overall: external auditory canals clear 03/19/2017 None Full Exam - General 1994 Ears/Nose/Throat otoscopic exam Overall: tympanic membranes clear 03/19/2017 None Full Exam - General 1994 Ears/Nose/Throat lips/teeth/gingiva Overall: benign lips 03/19/2017 None Full Exam - General 1994 Ears/Nose/Throat oral cavity/pharynx/larynx Overall: oral mucosa clear 03/19/2017 None Full Exam - General 1994 Respiratory auscultation Overall: breath sounds clear bilaterally 03/19/2017 None Full Exam - General 1994 Respiratory respiratory effort/rhythm Overall: no retractions 03/19/2017 None Full Exam - General 1994 Respiratory respiratory effort/rhythm Overall: normal rate 03/19/2017 None Full Exam - General 1994 Cardiovascular extremities Overall: no clubbing 03/19/2017 None Full Exam - General 1994 Cardiovascular auscultation of heart Overall: regular rate 03/19/2017 None Full Exam - General 1994 Cardiovascular auscultation of heart Overall: normal heart sounds 03/19/2017 None Full Exam - General 1994 Abdomen abdominal exam Overall: normal bowel sounds 03/19/2017 None Full Exam - General 1994 Musculoskeletal head and neck Overall: head atraumatic 03/19/2017 None Full Exam - General 1994 Integument inspection of skin Overall: few scattered moles, no gross abnormalities 03/19/2017 None Full Exam - General 1994 Neurologic cranial nerves Overall: crainial nerves 2 - 12 grossly intact 03/19/2017 None Full Exam - General 1994 Psychiatric orientation/consciousness Overall: oriented to person, place and time 03/19/2017 None Full Exam - General 1994 Psychiatric mood and affect Overall: normal mood and affect 03/19/2017 None Full Exam - General 1994 Psychiatric appearance Overall: well-groomed, good eye contact 03/19/2017 None Full Exam - General 1994 Constitutional general appearance Development: well developed 11/25/2016 None Full Exam - General 1994 Constitutional general appearance Development: appears stated age 0611/25/2016 None Full Exam - General 1994 Constitutional general appearance Overall: well developed 11/25/2016 None Full Exam - General 1994 Constitutional general appearance Overall: in no acute distress 11/25/2016 None Full Exam - General 1994 Constitutional general appearance Overall: well nourished 11/25/2016 None Full Exam - General 1994 Constitutional general appearance Hygiene/Attention to Grooming: good hygiene 11/25/2016 None Full Exam - General 1994 Eyes conjunctiva /eyelids Overall: conjunctiva clear 11/25/2016 None Full Exam - General 1994 Eyes conjunctiva /eyelids Overall: cornea clear 11/25/2016 None Full Exam - General 1994 Eyes conjunctiva /eyelids Overall: eyelids normal 11/25/2016 None Full Exam - General 1994 Eyes pupils and irises Overall: pupils equal, round, reactive to light and accomodation 11/25/2016 None Full Exam - General 1994 Ears/Nose/Throat oral cavity/pharynx/larynx Overall: oral mucosa clear 11/25/2016 None Full Exam - General 1994 Ears/Nose/Throat oral cavity/pharynx/larynx Overall: oropharyngeal mucosa clear 11/25/2016 None Full Exam - General 1994 Ears/Nose/Throat oral cavity/pharynx/larynx Overall: hypopharynx benign 11/25/2016 None Full Exam - General 1994 Ears/Nose/Throat oral cavity/pharynx/larynx Overall: no masses 11/25/2016 None Full Exam - General 1994 Respiratory auscultation Overall: breath sounds clear bilaterally 11/25/2016 None Full Exam - General 1994 Respiratory respiratory effort/rhythm Overall: no retractions 11/25/2016 None Full Exam - General 1994 Respiratory respiratory effort/rhythm Overall: normal rate 11/25/2016 None Full Exam - General 1994 Cardiovascular extremities Overall: no clubbing 11/25/2016 None Full Exam - General 1994 Cardiovascular auscultation of heart Overall: regular rate 11/25/2016 None Full Exam - General 1994 Cardiovascular auscultation of heart Overall: normal heart sounds 11/25/2016 None Full Exam - General 1994 Abdomen abdominal exam Overall: no tenderness 11/25/2016 None Full Exam - General 1994 Abdomen abdominal exam Overall: normal bowel sounds 11/25/2016 None Full Exam - General 1994 Musculoskeletal upper extremity Palpation - shoulder: glenohumeral joint tenderness 11/25/2016 None Full Exam - General 1994 Musculoskeletal upper extremity Palpation - shoulder: acromioclavicular joint tenderness 11/25/2016 None Full Exam - General 1994 Musculoskeletal spine, ribs and pelvis Overall: spine benign 11/25/2016 None Full Exam - General 1994 Musculoskeletal spine, ribs and pelvis Overall: sacroiliac joint benign 11/25/2016 None Full Exam - General 1994 Musculoskeletal spine, ribs and pelvis Overall: good posture 11/25/2016 None Full Exam - General 1994 Musculoskeletal head and neck Overall: head atraumatic 11/25/2016 None Full Exam - General 1994 Musculoskeletal head and neck Overall: cervical spine benign 11/25/2016 None Full Exam - General 1994 Integument inspection of skin Overall: few scattered moles, no gross abnormalities 11/25/2016 None Full Exam - General 1994 Neurologic cranial nerves Overall: crainial nerves 2 - 12 grossly intact 11/25/2016 None Full Exam - General 1994 Psychiatric orientation/consciousness Overall: oriented to person, place and time 11/25/2016 None Full Exam - General 1994 Psychiatric mood and affect Overall: normal mood and affect 11/25/2016 None Full Exam - General 1994 Psychiatric mood and affect Mood: happy 11/25/2016 None Full Exam - General 1994 Psychiatric appearance Overall: well-groomed, good eye contact 11/25/2016 None Full Exam - General 1994 Constitutional general appearance Overall: well developed 05/28/2016 None Full Exam - General 1994 Constitutional general appearance Overall: in no acute distress 05/28/2016 None Full Exam - General 1994 Constitutional general appearance Overall: well nourished 05/28/2016 None Full Exam - General 1994 Eyes conjunctiva /eyelids Overall: conjunctiva clear 05/28/2016 None Full Exam - General 1994 Eyes conjunctiva /eyelids Overall: eyelids normal 05/28/2016 None Full Exam - General 1994 Eyes pupils and irises Overall: pupils equal, round, reactive to light and accomodation 05/28/2016 None Full Exam - General 1994 Ears/Nose/Throat otoscopic exam Overall: external auditory canals clear 05/28/2016 None Full Exam - General 1994 Ears/Nose/Throat otoscopic exam Overall: tympanic membranes clear 05/28/2016 None Full Exam - General 1994 Ears/Nose/Throat lips/teeth/gingiva Overall: benign lips 05/28/2016 None Full Exam - General 1994 Ears/Nose/Throat oral cavity/pharynx/larynx Overall: oral mucosa clear 05/28/2016 None Full Exam - General 1994 Respiratory auscultation Overall: breath sounds clear bilaterally 05/28/2016 None Full Exam - General 1994 Respiratory respiratory effort/rhythm Overall: no retractions 05/28/2016 None Full Exam - General 1994 Respiratory respiratory effort/rhythm Overall: normal rate 05/28/2016 None Full Exam - General 1994 Cardiovascular extremities Overall: no clubbing 05/28/2016 None Full Exam - General 1994 Cardiovascular auscultation of heart Overall: regular rate 05/28/2016 None Full Exam - General 1994 Cardiovascular auscultation of heart Overall: normal heart sounds 05/28/2016 None Full Exam - General 1994 Abdomen abdominal exam Overall: normal bowel sounds 05/28/2016 None Full Exam - General 1994 Musculoskeletal head and neck Overall: head atraumatic 05/28/2016 None Full Exam - General 1994 Integument inspection of skin Overall: few scattered moles, no gross abnormalities 05/28/2016 None Full Exam - General 1994 Psychiatric orientation/consciousness Overall: oriented to person, place and time 05/28/2016 None Full Exam - General 1994 Psychiatric mood and affect Overall: normal mood and affect 05/28/2016 None Full Exam - General 1994 Psychiatric appearance Overall: well-groomed, good eye contact 05/28/2016 None Full Exam - General 1994 Neurologic cranial nerves Overall: crainial nerves 2 - 12 grossly intact 05/28/2016 None Full Exam - General 1994 Constitutional general appearance Development: well developed 04/22/2016 None Full Exam - General 1994 Constitutional general appearance Development: appears stated age 1104/22/2016 None Full Exam - General 1994 Constitutional general appearance Overall: well developed 04/22/2016 None Full Exam - General 1994 Constitutional general appearance Overall: in no acute distress 04/22/2016 None Full Exam - General 1994 Constitutional general appearance Overall: well nourished 04/22/2016 None Full Exam - General 1994 Constitutional general appearance Hygiene/Attention to Grooming: good hygiene 04/22/2016 None Full Exam - General 1994 Eyes conjunctiva /eyelids Overall: conjunctiva clear 04/22/2016 None Full Exam - General 1994 Eyes conjunctiva /eyelids Overall: cornea clear 04/22/2016 None Full Exam - General 1994 Eyes conjunctiva /eyelids Overall: eyelids normal 04/22/2016 None Full Exam - General 1994 Eyes pupils and irises Overall: pupils equal, round, reactive to light and accomodation 04/22/2016 None Full Exam - General 1994 Ears/Nose/Throat otoscopic exam Overall: external auditory canals clear 04/22/2016 None Full Exam - General 1994 Ears/Nose/Throat otoscopic exam Overall: tympanic membranes clear 04/22/2016 None Full Exam - General 1994 Ears/Nose/Throat lips/teeth/gingiva Overall: benign lips 04/22/2016 None Full Exam - General 1994 Ears/Nose/Throat lips/teeth/gingiva Overall: normal dentition 04/22/2016 None Full Exam - General 1994 Ears/Nose/Throat oral cavity/pharynx/larynx Overall: oral mucosa clear 04/22/2016 None Full Exam - General 1994 Ears/Nose/Throat oral cavity/pharynx/larynx Overall: oropharyngeal mucosa clear 04/22/2016 None Full Exam - General 1994 Ears/Nose/Throat oral cavity/pharynx/larynx Overall: hypopharynx benign 04/22/2016 None Full Exam - General 1994 Ears/Nose/Throat oral cavity/pharynx/larynx Overall: no masses 04/22/2016 None Full Exam - General 1994 Respiratory auscultation Overall: breath sounds clear bilaterally 04/22/2016 None Full Exam - General 1994 Respiratory respiratory effort/rhythm Overall: no retractions 04/22/2016 None Full Exam - General 1994 Respiratory respiratory effort/rhythm Overall: normal rate 04/22/2016 None Full Exam - General 1994 Cardiovascular extremities Overall: no clubbing 04/22/2016 None Full Exam - General 1994 Cardiovascular auscultation of heart Overall: regular rate 04/22/2016 None Full Exam - General 1994 Cardiovascular auscultation of heart Overall: normal heart sounds 04/22/2016 None Full Exam - General 1994 Abdomen abdominal exam Overall: no tenderness 04/22/2016 None Full Exam - General 1994 Abdomen abdominal exam Overall: normal bowel sounds 04/22/2016 None Full Exam - General 1994 Lymphatic neck nodes Overall: anterior cervical chain benign 04/22/2016 None Full Exam - General 1994 Lymphatic neck nodes Overall: posterior cervical chain benign 04/22/2016 None Full Exam - General 1994 Musculoskeletal spine, ribs and pelvis Overall: spine benign 04/22/2016 None Full Exam - General 1994 Musculoskeletal spine, ribs and pelvis Overall: sacroiliac joint benign 04/22/2016 None Full Exam - General 1994 Musculoskeletal spine, ribs and pelvis Overall: good posture 04/22/2016 None Full Exam - General 1994 Musculoskeletal head and neck Overall: head atraumatic 04/22/2016 None Full Exam - General 1994 Musculoskeletal head and neck Overall: cervical spine benign 04/22/2016 None Full Exam - General 1994 Integument inspection of skin Overall: few scattered moles, no gross abnormalities 04/22/2016 None Full Exam - General 1994 Neurologic deep tendon reflexes Overall: deep tendon reflexes intact 04/22/2016 None Full Exam - General 1994 Neurologic cranial nerves Overall: crainial nerves 2 - 12 grossly intact 04/22/2016 None Full Exam - General 1994 Psychiatric orientation/consciousness Overall: oriented to person, place and time 04/22/2016 None Full Exam - General 1994 Psychiatric mood and affect Overall: normal mood and affect 04/22/2016 None Full Exam - General 1994 Psychiatric appearance Overall: well-groomed, good eye contact 04/22/2016 None Full Exam - General 1994 Psychiatric mood and affect Mood: happy 04/22/2016 None Full Exam - General 1994 Musculoskeletal upper extremity Palpation - shoulder: glenohumeral joint tenderness 04/22/2016 None Full Exam - General 1994 Musculoskeletal upper extremity Palpation - shoulder: acromioclavicular joint tenderness 04/22/2016 None Full Exam - General 1994 Constitutional general appearance Overall: well developed 10/18/2015 None Full Exam - General 1994 Constitutional general appearance Overall: in no acute distress 10/18/2015 None Full Exam - General 1994 Constitutional general appearance Overall: well nourished 10/18/2015 None Full Exam - General 1994 Respiratory auscultation Overall: breath sounds clear bilaterally 10/18/2015 None Full Exam - General 1994 Respiratory respiratory effort/rhythm Overall: no retractions 10/18/2015 None Full Exam - General 1994 Respiratory respiratory effort/rhythm Overall: normal rate 10/18/2015 None Full Exam - General 1994 Cardiovascular auscultation of heart Overall: regular rate 10/18/2015 None Full Exam - General 1994 Cardiovascular auscultation of heart Overall: normal heart sounds 10/18/2015 None Full Exam - General 1994 Psychiatric orientation/consciousness Overall: oriented to person, place and time 10/18/2015 None Full Exam - General 1994 Psychiatric mood and affect Appropriateness: appropriate emotional responses 10/18/2015 None Full Exam - General 1994 Psychiatric appearance Overall: well-groomed, good eye contact 10/18/2015 None Full Exam - General 1994 Psychiatric mood and affect Overall: normal mood and affect 10/18/2015 None Full Exam - General 1994 Ears/Nose/Throat otoscopic exam Overall: tympanic membranes clear 10/18/2015 None Full Exam - General 1994 Ears/Nose/Throat otoscopic exam Overall: external auditory canals clear 10/18/2015 None Full Exam - General 1994 Ears/Nose/Throat oral cavity/pharynx/larynx Overall: oropharyngeal mucosa clear 10/18/2015 None Full Exam - General 1994 Ears/Nose/Throat oral cavity/pharynx/larynx Overall: no masses 10/18/2015 None Full Exam - General 1994 Ears/Nose/Throat oral cavity/pharynx/larynx Overall: oral mucosa clear 10/18/2015 None Full Exam - General 1994 Eyes conjunctiva /eyelids Overall: conjunctiva clear 10/18/2015 None Full Exam - General 1994 Eyes pupils and irises Overall: pupils equal, round, reactive to light and accomodation 10/18/2015 None Full Exam - General 1994 Abdomen abdominal exam Overall: no tenderness 10/18/2015 None Full Exam - General 1994 Abdomen abdominal exam Overall: normal bowel sounds 10/18/2015 None Full Exam - General 1994 Musculoskeletal gait and station Overall: normal gait 10/18/2015 None Full Exam - General 1994 Musculoskeletal gait and station Overall: normal station 10/18/2015 None Full Exam - General 1994 Constitutional general appearance Development: well developed 06/14/2015 None Full Exam - General 1994 Constitutional general appearance Development: appears stated age 0106/14/2015 None Full Exam - General 1994 Constitutional general appearance Overall: well developed 06/14/2015 None Full Exam - General 1994 Constitutional general appearance Overall: in no acute distress 06/14/2015 None Full Exam - General 1994 Constitutional general appearance Overall: well nourished 06/14/2015 None Full Exam - General 1994 Constitutional general appearance Hygiene/Attention to Grooming: good hygiene 06/14/2015 None Full Exam - General 1994 Eyes conjunctiva /eyelids Overall: conjunctiva clear 06/14/2015 None Full Exam - General 1994 Eyes conjunctiva /eyelids Overall: cornea clear 06/14/2015 None Full Exam - General 1994 Eyes conjunctiva /eyelids Overall: eyelids normal 06/14/2015 None Full Exam - General 1994 Eyes pupils and irises Overall: pupils equal, round, reactive to light and accomodation 06/14/2015 None Full Exam - General 1994 Ears/Nose/Throat otoscopic exam Overall: external auditory canals clear 06/14/2015 None Full Exam - General 1994 Ears/Nose/Throat otoscopic exam Overall: tympanic membranes clear 06/14/2015 None Full Exam - General 1994 Ears/Nose/Throat lips/teeth/gingiva Overall: benign lips 06/14/2015 None Full Exam - General 1994 Ears/Nose/Throat lips/teeth/gingiva Overall: normal dentition 06/14/2015 None Full Exam - General 1994 Ears/Nose/Throat oral cavity/pharynx/larynx Overall: oral mucosa clear 06/14/2015 None Full Exam - General 1994 Ears/Nose/Throat oral cavity/pharynx/larynx Overall: oropharyngeal mucosa clear 06/14/2015 None Full Exam - General 1994 Ears/Nose/Throat oral cavity/pharynx/larynx Overall: hypopharynx benign 06/14/2015 None Full Exam - General 1994 Ears/Nose/Throat oral cavity/pharynx/larynx Overall: no masses 06/14/2015 None Full Exam - General 1994 Respiratory auscultation Overall: breath sounds clear bilaterally 06/14/2015 None Full Exam - General 1994 Respiratory respiratory effort/rhythm Overall: no retractions 06/14/2015 None Full Exam - General 1994 Respiratory respiratory effort/rhythm Overall: normal rate 06/14/2015 None Full Exam - General 1994 Cardiovascular extremities Overall: no clubbing 06/14/2015 None Full Exam - General 1994 Cardiovascular auscultation of heart Overall: regular rate 06/14/2015 None Full Exam - General 1994 Cardiovascular auscultation of heart Overall: normal heart sounds 06/14/2015 None Full Exam - General 1994 Abdomen abdominal exam Overall: no tenderness 06/14/2015 None Full Exam - General 1994 Abdomen abdominal exam Overall: normal bowel sounds 06/14/2015 None Full Exam - General 1994 Lymphatic neck nodes Overall: anterior cervical chain benign 06/14/2015 None Full Exam - General 1994 Lymphatic neck nodes Overall: posterior cervical chain benign 06/14/2015 None Full Exam - General 1994 Musculoskeletal spine, ribs and pelvis Overall: spine benign 06/14/2015 None Full Exam - General 1994 Musculoskeletal spine, ribs and pelvis Overall: sacroiliac joint benign 06/14/2015 None Full Exam - General 1994 Musculoskeletal spine, ribs and pelvis Overall: good posture 06/14/2015 None Full Exam - General 1994 Musculoskeletal head and neck Overall: head atraumatic 06/14/2015 None Full Exam - General 1994 Musculoskeletal head and neck Overall: cervical spine benign 06/14/2015 None Full Exam - General 1994 Integument inspection of skin Overall: few scattered moles, no gross abnormalities 06/14/2015 None Full Exam - General 1994 Neurologic deep tendon reflexes Overall: deep tendon reflexes intact 06/14/2015 None Full Exam - General 1994 Neurologic cranial nerves Overall: crainial nerves 2 - 12 grossly intact 06/14/2015 None Full Exam - General 1994 Psychiatric orientation/consciousness Overall: oriented to person, place and time 06/14/2015 None Full Exam - General 1994 Psychiatric mood and affect Overall: normal mood and affect 06/14/2015 None Full Exam - General 1994 Psychiatric mood and affect Mood: depressed 06/14/2015 less tearful today Full Exam - General 1994 Psychiatric mood and affect Affect: mood congruent 06/14/2015 None Full Exam - General 1994 Psychiatric mood and affect Appropriateness: appropriate emotional responses 06/14/2015 None Full Exam - General 1994 Psychiatric appearance Overall: well-groomed, good eye contact 06/14/2015 None Full Exam - General 1994 Constitutional general appearance Overall: well developed 03/08/2015 None Full Exam - General 1994 Constitutional general appearance Overall: in no acute distress 03/08/2015 None Full Exam - General 1994 Constitutional general appearance Overall: well nourished 03/08/2015 None Full Exam - General 1994 Respiratory auscultation Overall: breath sounds clear bilaterally 03/08/2015 None Full Exam - General 1994 Respiratory respiratory effort/rhythm Overall: no retractions 03/08/2015 None Full Exam - General 1994 Respiratory respiratory effort/rhythm Overall: normal rate 03/08/2015 None Full Exam - General 1994 Cardiovascular auscultation of heart Overall: regular rate 03/08/2015 None Full Exam - General 1994 Cardiovascular auscultation of heart Overall: normal heart sounds 03/08/2015 None Full Exam - General 1994 Psychiatric orientation/consciousness Overall: oriented to person, place and time 03/08/2015 None Full Exam - General 1994 Psychiatric mood and affect Mood: depressed 03/08/2015 less tearful today Full Exam - General 1994 Psychiatric mood and affect Affect: mood congruent 03/08/2015 None Full Exam - General 1994 Psychiatric mood and affect Appropriateness: appropriate emotional responses 03/08/2015 None Full Exam - General 1994 Psychiatric appearance Overall: well-groomed, good eye contact 03/08/2015 None Full Exam - General 1994 Constitutional general appearance Development: well developed 03/08/2015 None Full Exam - General 1994 Constitutional general appearance Development: appears stated age 1003/08/2015 None Full Exam - General 1994 Constitutional general appearance Hygiene/Attention to Grooming: good hygiene 03/08/2015 None Full Exam - General 1994 Eyes conjunctiva /eyelids Overall: conjunctiva clear 03/08/2015 None Full Exam - General 1994 Eyes conjunctiva /eyelids Overall: cornea clear 03/08/2015 None Full Exam - General 1994 Eyes conjunctiva /eyelids Overall: eyelids normal 03/08/2015 None Full Exam - General 1994 Eyes pupils and irises Overall: pupils equal, round, reactive to light and accomodation 03/08/2015 None Full Exam - General 1994 Ears/Nose/Throat otoscopic exam Overall: external auditory canals clear 03/08/2015 None Full Exam - General 1994 Ears/Nose/Throat otoscopic exam Overall: tympanic membranes clear 03/08/2015 None Full Exam - General 1994 Ears/Nose/Throat lips/teeth/gingiva Overall: benign lips 03/08/2015 None Full Exam - General 1994 Ears/Nose/Throat lips/teeth/gingiva Overall: normal dentition 03/08/2015 None Full Exam - General 1994 Ears/Nose/Throat oral cavity/pharynx/larynx Overall: oral mucosa clear 03/08/2015 None Full Exam - General 1994 Ears/Nose/Throat oral cavity/pharynx/larynx Overall: oropharyngeal mucosa clear 03/08/2015 None Full Exam - General 1994 Ears/Nose/Throat oral cavity/pharynx/larynx Overall: hypopharynx benign 03/08/2015 None Full Exam - General 1994 Ears/Nose/Throat oral cavity/pharynx/larynx Overall: no masses 03/08/2015 None Full Exam - General 1994 Cardiovascular extremities Overall: no clubbing 03/08/2015 None Full Exam - General 1994 Abdomen abdominal exam Overall: no tenderness 03/08/2015 None Full Exam - General 1994 Abdomen abdominal exam Overall: normal bowel sounds 03/08/2015 None Full Exam - General 1994 Lymphatic neck nodes Overall: anterior cervical chain benign 03/08/2015 None Full Exam - General 1994 Lymphatic neck nodes Overall: posterior cervical chain benign 03/08/2015 None Full Exam - General 1994 Musculoskeletal spine, ribs and pelvis Overall: spine benign 03/08/2015 None Full Exam - General 1994 Musculoskeletal spine, ribs and pelvis Overall: sacroiliac joint benign 03/08/2015 None Full Exam - General 1994 Musculoskeletal spine, ribs and pelvis Overall: good posture 03/08/2015 None Full Exam - General 1994 Musculoskeletal head and neck Overall: head atraumatic 03/08/2015 None Full Exam - General 1994 Musculoskeletal head and neck Overall: cervical spine benign 03/08/2015 None Full Exam - General 1994 Integument inspection of skin Overall: few scattered moles, no gross abnormalities 03/08/2015 None Full Exam - General 1994 Neurologic deep tendon reflexes Overall: deep tendon reflexes intact 03/08/2015 None Full Exam - General 1994 Neurologic cranial nerves Overall: crainial nerves 2 - 12 grossly intact 03/08/2015 None Full Exam - General 1994 Psychiatric mood and affect Overall: normal mood and affect 03/08/2015 None Full Exam - General 1994 Constitutional general appearance Overall: well developed 10/24/2014 None Full Exam - General 1994 Constitutional general appearance Overall: in no acute distress 10/24/2014 None Full Exam - General 1994 Constitutional general appearance Overall: well nourished 10/24/2014 None Full Exam - General 1994 Respiratory respiratory effort/rhythm Overall: no retractions 10/24/2014 None Full Exam - General 1994 Respiratory auscultation Overall: breath sounds clear bilaterally 10/24/2014 None Full Exam - General 1994 Respiratory respiratory effort/rhythm Overall: normal rate 10/24/2014 None Full Exam - General 1994 Cardiovascular auscultation of heart Overall: regular rate 10/24/2014 None Full Exam - General 1994 Cardiovascular auscultation of heart Overall: normal heart sounds 10/24/2014 None Full Exam - General 1994 Psychiatric mood and affect Mood: depressed 10/24/2014 less tearful today Full Exam - General 1994 Psychiatric mood and affect Affect: mood congruent 10/24/2014 None Full Exam - General 1994 Psychiatric mood and affect Appropriateness: appropriate emotional responses 10/24/2014 None Full Exam - General 1994 Psychiatric appearance Overall: well-groomed, good eye contact 10/24/2014 None Full Exam - General 1994 Psychiatric orientation/consciousness Overall: oriented to person, place and time 10/24/2014 None Full Exam - General 1994 Constitutional general appearance Overall: well developed 09/26/2014 None Full Exam - General 1994 Constitutional general appearance Overall: in no acute distress 09/26/2014 None Full Exam - General 1994 Constitutional general appearance Overall: well nourished 09/26/2014 None Full Exam - General 1994 Psychiatric orientation/consciousness Overall: oriented to person, place and time 09/26/2014 None Full Exam - General 1994 Psychiatric mood and affect Mood: depressed 09/26/2014 None Full Exam - General 1994 Psychiatric mood and affect Affect: mood congruent 09/26/2014 None Full Exam - General 1994 Psychiatric mood and affect Appropriateness: appropriate emotional responses 09/26/2014 None Full Exam - General 1994 Psychiatric appearance Overall: well-groomed, good eye contact 09/26/2014 None Full Exam - General 1994 Neurologic deep tendon reflexes Overall: deep tendon reflexes intact 09/26/2014 None Full Exam - General 1994 Neurologic cranial nerves Overall: crainial nerves 2 - 12 grossly intact 09/26/2014 None Full Exam - General 1994 Integument inspection of skin Overall: no rash, lesions 09/26/2014 None Full Exam - General 1994 Musculoskeletal digits and nails Overall: digits benign 09/26/2014 None Full Exam - General 1994 Musculoskeletal digits and nails Overall: no clubbing 09/26/2014 None Full Exam - General 1994 Musculoskeletal head and neck Overall: cervical spine benign 09/26/2014 None Full Exam - General 1994 Musculoskeletal head and neck Overall: head atraumatic 09/26/2014 None Full Exam - General 1994 Lymphatic neck nodes Overall: anterior cervical chain benign 09/26/2014 None Full Exam - General 1994 Lymphatic neck nodes Overall: posterior cervical chain benign 09/26/2014 None Full Exam - General 1994 Abdomen abdominal exam Overall: no tenderness 09/26/2014 None Full Exam - General 1994 Abdomen abdominal exam Overall: normal bowel sounds 09/26/2014 None Full Exam - General 1994 Cardiovascular auscultation of heart Overall: regular rate 09/26/2014 None Full Exam - General 1994 Cardiovascular auscultation of heart Overall: normal heart sounds 09/26/2014 None Full Exam - General 1994 Cardiovascular auscultation of heart Overall: no murmurs 09/26/2014 None Full Exam - General 1994 Respiratory auscultation Overall: breath sounds clear bilaterally 09/26/2014 None Full Exam - General 1994 Respiratory respiratory effort/rhythm Overall: normal rate 09/26/2014 None Full Exam - General 1994 Respiratory respiratory effort/rhythm Overall: no retractions 09/26/2014 None Full Exam - General 1994 Ears/Nose/Throat otoscopic exam Overall: external auditory canals clear 09/26/2014 None Full Exam - General 1994 Ears/Nose/Throat otoscopic exam Overall: tympanic membranes clear 09/26/2014 None Full Exam - General 1994 Ears/Nose/Throat oral cavity/pharynx/larynx Overall: oral mucosa clear 09/26/2014 None Full Exam - General 1994 Eyes conjunctiva /eyelids Overall: conjunctiva clear 09/26/2014 None Procedures Procedure Codes Date DRAIN/INJECT JOINT/BURSA CPT-4: 56420 06/05/2017 TRIAMCINOLONE ACET INJ NOS CPT-4: J3301 06/05/2017 FLU VAC NO PRSV 4 RENEE 3 YRS+ CPT-4: 26888 03/19/2017 ADMIN INFLUENZA VIRUS VAC CPT-4: G0008 03/19/2017 DRAIN/INJECT JOINT/BURSA CPT-4: 25164 11/25/2016 TRIAMCINOLONE ACET INJ NOS CPT-4: J3301 11/25/2016 PPPS, SUBSEQ VISIT CPT -4: G0439 05/28/2016 DRAIN/INJECT JOINT/BURSA CPT-4: 35591 04/22/2016 TRIAMCINOLONE ACET INJ NOS CPT-4: J3301 04/22/2016 ADMIN INFLUENZA VIRUS VAC CPT-4: G0008 03/08/2015 FLU VACC 4 RENEE 3 YRS PLUS IM Formatting Model/CDA Sections, Assigned to SNOMED CT: [id number] CPT-4: 68925Azgaqov 03/08/2015 TRIAMCINOLONE ACET INJ NOS CPT-4: J3301 03/08/2015 DRAIN/INJECT JOINT/BURSA CPT-4: 09712 03/08/2015 Vital Signs Date Vital 06/05/2017 Blood Pressure 1: 128/80 Code : 8480-6 BMI: 24.5 Code : 39042-2 Heart Rate 1 : 85 bpm Height: 5'12" SpO2: 98% Weight: 178 lbs 03/19/2017 Blood Pressure 1: 146/80 Code : 8480-6 BMI: 23.8 Code : 36239-1 Heart Rate 1 : 69 bpm Height: 5'12" SpO2: 99% Weight: 173 lbs 11/25/2016 Blood Pressure 1: 134/78 Code : 8480-6 BMI: 23.9 Code : 42072-1 Heart Rate 1 : 72 bpm Height: 5'12" SpO2: 99% Weight: 174 lbs 05/28/2016 Blood Pressure 1: 132/70 Code : 8480-6 BMI: 23.7 Code : 70499-3 Heart Rate 1 : 79 bpm Height: 5'12" SpO2: 97% Waist Measure (cm): 81 cm Weight: 172 lbs 04/22/2016 Blood Pressure 1: 128/76 Code : 8480-6 BMI: 24.1 Code : 33623-2 Heart Rate 1 : 86 bpm Height: 5'12" SpO2: 99% Weight: 175 lbs 10/18/2015 Blood Pressure 1: 132/70 Code : 8480-6 BMI: 24.5 Code : 53234-8 Heart Rate 1 : 79 bpm Height: 5'12" SpO2: 90% Weight: 178 lbs 06/14/2015 Blood Pressure 1: 132/76 Code : 8480-6 BMI: 24.3 Code : 19216-4 Heart Rate 1 : 85 bpm Height: 5'12" SpO2: 98% Weight: 176 lbs 8 oz 03/08/2015 Blood Pressure 1: 140/90 Code : 8480-6 BMI: 23.4 Code : 31427-1 Heart Rate 1 : 79 bpm Height: 5'12" SpO2: 97% Weight: 170 lbs 10/24/2014 Blood Pressure 1: 142/82 Code : 8480-6 BMI: 23.4 Code : 13001-2 Heart Rate 1 : 85 bpm Height: 5'12" SpO2: 100% Weight: 170 lbs 09/26/2014 Blood Pressure 1: 118/70 Code : 8480-6 Heart Rate 1: 81 bpm SpO2: 96% Weight: 173 lbs Functional Status No Functional Status data History of Present Illness Symptom Name Status Result Effective Date Notes shoulder pain Location diffusely 06/05/2017 None shoulder pain Location on both shoulders 06/05/2017 None shoulder pain Quality aching 06/05/2017 None shoulder pain Onset and Resolution ongoing 06/05/2017 None shoulder pain Limitation on Activities does not limit activities 06/05/2017 None shoulder pain Frequency of Episodes daily 06/05/2017 None shoulder pain Triggers activity 06/05/2017 None shoulder pain Alleviating Factors steroid injection 06/05/2017 None shoulder pain Exacerbating Factors activity 06/05/2017 None shoulder pain Pertinent Findings stiffness 06/05/2017 None well man exam (65+ years) Lifestyle regular seatbelt use 03/19/2017 None well man exam (65+ years) Lifestyle normal sleep patterns 03/19/2017 None well man exam (65+ years) Lifestyle normal amount of stress 03/19/2017 None well man exam (65+ years) Nutrition and Exercise normal weight 03/19/2017 None well man exam (65+ years) Nutrition and Exercise moderate exercise 03/19/2017 - Every day- He walks and does exercises on the floor abdominal pain Location in the RUQ 03/19/2017 None abdominal pain Quality acute 03/19/2017 None abdominal pain Quality intermittent 03/19/2017 None abdominal pain Onset and Resolution sudden in onset 03/19/2017 None abdominal pain Onset of Symptom 2 months ago 03/19/2017 None abdominal pain Triggers no known associated factors 03/19/2017 None abdominal pain Alleviating Factors proton pump inhibitor 03/19/2017 (nexium) well man exam (65+ years) Control none 03/19/2017 None well man exam (65+ years) Health Guidance fecal occult blood testing 03/19/2017 None well man exam (65+ years) Health Guidance fasting glucose every 3 years 03/19/2017 None well man exam (65+ years) Health Guidance prostate specific antigen 03/19/2017 None shoulder pain Location diffusely 11/25/2016 None shoulder pain Location on both shoulders 11/25/2016 None shoulder pain Quality aching 11/25/2016 None shoulder pain Onset and Resolution ongoing 11/25/2016 None shoulder pain Limitation on Activities does not limit activities 11/25/2016 None shoulder pain Frequency of Episodes daily 11/25/2016 None shoulder pain Triggers activity 11/25/2016 None shoulder pain Alleviating Factors steroid injection 11/25/2016 None shoulder pain Exacerbating Factors activity 11/25/2016 None shoulder pain Pertinent Findings stiffness 11/25/2016 None Annual Medicare Wellness Exam Alcohol Use drinks 1 days per week 05/28/2016 None Annual Medicare Wellness Exam Aspirin Use no 05/28/2016 None Annual Medicare Wellness Exam Blood Glucose (self reported) don't know 05/28/2016 None Annual Medicare Wellness Exam Blood Pressure (self reported ) low / normal (120/80) 05/28/2016 None Annual Medicare Wellness Exam Cholesterol (self reported) borderline high (200-239) 05/28/2016 None Annual Medicare Wellness Exam Depression (last 6 months) some of the time 05/28/2016 None Annual Medicare Wellness Exam Depression or Hopelessness almost never 05/28/2016 None Annual Medicare Wellness Exam Describe Your Health very good 05/28/2016 None Annual Medicare Wellness Exam Exercise Habits exercises 3 days per week 05/28/2016 None Annual Medicare Wellness Exam Exercise Habits exercises 60 minutes per day 05/28/2016 None Annual Medicare Wellness Exam Handling Stress usually anna effectively 05/28/2016 None Annual Medicare Wellness Exam Hemaglobin A-1C (self reported ) don't know 05/28/2016 None Annual Medicare Wellness Exam Hours of Sleep 8 05/28/2016 None Annual Medicare Wellness Exam Interaction with Friends yes 05/28/2016 None Annual Medicare Wellness Exam Interests & Pleasure daily 05/28/2016 None Annual Medicare Wellness Exam Life Satisfaction very satisfied 05/28/2016 None Annual Medicare Wellness Exam Motor Vehicle Safety always fastens seat belt: y 05/28/2016 None Annual Medicare Wellness Exam Motor Vehicle Safety drives after drinking: n 05/28/2016 None Annual Medicare Wellness Exam Motor Vehicle Safety rides with someone who has been drinking: n 2015 None Annual Medicare Wellness Exam Nutrition servings of fried food / high fat foods per day: 0 2015 None Annual Medicare Wellness Exam Nutrition servings of high fiber / whole grain per day: 1 05/28/2016 None Annual Medicare Wellness Exam Nutrition servings of vegetables / fruit per day: 2 05/28/2016 None Annual Medicare Wellness Exam Smoking and Tobacco Use non smoker 05/28/2016 None Annual Medicare Wellness Exam Social & Emotional Support rarely 05/28/2016 None Annual Medicare Wellness Exam Stress some of the time 05/28/2016 None Annual Medicare Wellness Exam Sun Exposure protects skin when outdoors: y 05/28/2016 None shoulder pain Location diffusely 04/22/2016 None shoulder pain Location on both shoulders 04/22/2016 None shoulder pain Quality aching 04/22/2016 None shoulder pain Onset and Resolution ongoing 04/22/2016 None shoulder pain Frequency of Episodes daily 04/22/2016 None shoulder pain Pertinent Findings stiffness 04/22/2016 None shoulder pain Limitation on Activities does not limit activities 04/22/2016 None shoulder pain Mechanism of injury unknown 04/22/2016 None shoulder pain Triggers activity 04/22/2016 None shoulder pain Alleviating Factors steroid injection 04/22/2016 None shoulder pain Exacerbating Factors activity 04/22/2016 None well man exam (65+ years) Lifestyle no history of physical abuse 10/18/2015 None well man exam (65+ years) Lifestyle regular seatbelt use 10/18/2015 None well man exam (65+ years) Lifestyle family supportive 10/18/2015 None well man exam (65+ years) Lifestyle normal sleep patterns 10/18/2015 None well man exam (65+ years) Lifestyle normal amount of stress 10/18/2015 None well man exam (65+ years) Sexual Activity is not sexually active 10/18/2015 None well man exam (65+ years) Control none 10/18/2015 None well man exam (65+ years) Nutrition and Exercise normal weight 10/18/2015 None well man exam (65+ years) Nutrition and Exercise no consultation with a dietitian 10/18/2015 None well man exam (65+ years) Nutrition and Exercise moderate exercise 10/18/2015 None depression Onset and Resolution ongoing 06/14/2015 None depression Limitation on Activities does not limit activities 06/14/2015 None depression Frequency of Episodes daily 06/14/2015 None depression Significant Medical Conditions traumatic event 06/14/2015 depression Pertinent Findings Denies depressed mood 06/14/2015 None depression Pertinent Findings Denies difficulty concentrating 06/14/2015 None depression Pertinent Findings Denies helplessness 06/14/2015 None depression Pertinent Findings Denies hopelessness 06/14/2015 None depression Pertinent Findings Denies loss of interest in activities 06/14/2015 None depression Pertinent Findings Denies sleep disturbance 06/14/2015 None depression Pertinent Findings Denies weight loss 06/14/2015 None shoulder pain Location on the left shoulder 06/14/2015 None shoulder pain Onset and Resolution ongoing 06/14/2015 None shoulder pain Limitation on Activities moderately limits activities 06/14/2015 None depression Onset of Symptom _ months ago 06/14/2015 August 03, 2014- shoulder pain Alleviating Factors injection 06/14/2015 None shoulder pain Pertinent Findings limited range of motion 06/14/2015 None blood pressure followup Blood Pressure Values pt checking blood pressure at home, did not bring in to clinic 06/14/2015 None blood pressure followup Blood Pressure Values "white coat" (home SBP<129 / DBP<84) 06/14/2015 None weight loss Quality acute 03/08/2015 None weight loss Onset and Resolution ongoing 03/08/2015 None weight loss Onset of Symptom _ weeks ago 03/08/2015 since August 03 when . Not eating as well-states she cook welled and took good care of me weight loss Triggers mood change 03/08/2015 None weight loss Alleviating Factors change in dietary habits 03/08/2015 not eating as much but it doing better weight loss Pertinent Findings depressed mood 03/08/2015 None depression Quality acute 03/08/2015 None depression Onset and Resolution ongoing 03/08/2015 None depression Onset of Symptom _ weeks ago 03/08/2015 August 03, . States he has a hole in his heart depression Limitation on Activities does not limit activities 03/08/2015 None depression Frequency of Episodes daily 03/08/2015 None depression Significant Medical Conditions traumatic event 03/08/2015 depression Pertinent Findings depressed mood 03/08/2015 None depression Pertinent Findings Denies difficulty concentrating 03/08/2015 reports he has trouble remembering names depression Pertinent Findings helplessness 03/08/2015 tearful- talks about his depression Pertinent Findings hopelessness 03/08/2015 None depression Pertinent Findings Denies loss of interest in activities 03/08/2015 None depression Pertinent Findings sleep disturbance 03/08/2015 he can get to sleep but wakes up around 4:30am, has tried Aleve PM and Alprazolam, but doesnt stay asleep depression Pertinent Findings weight loss 03/08/2015 None anxiety Quality acute 03/08/2015 None anxiety Onset and Resolution ongoing 03/08/2015 None anxiety Onset of Symptom _ weeks ago 03/08/2015 August 03 anxiety Limitation on Activities moderately limits activities 03/08/2015 None anxiety Frequency of Episodes unchanged 03/08/2015 None anxiety Triggers of family member or close friend 03/08/2015 anxiety Pertinent Findings insomnia 03/08/2015 None anxiety Pertinent Findings upset stomach 03/08/2015 churning stomach weight loss Quality acute 10/24/2014 None weight loss Onset and Resolution ongoing 10/24/2014 None weight loss Onset of Symptom _ weeks ago 10/24/2014 since August 03 when . Not eating as well-states she cook welled and took good care of me weight loss Triggers mood change 10/24/2014 None weight loss Alleviating Factors change in dietary habits 10/24/2014 not eating as much but it doing better weight loss Pertinent Findings depressed mood 10/24/2014 None depression Quality acute 10/24/2014 None depression Onset and Resolution ongoing 10/24/2014 None depression Onset of Symptom _ weeks ago 10/24/2014 August 03, . States he has a hole in his heart depression Frequency of Episodes daily 10/24/2014 None depression Significant Medical Conditions traumatic event 10/24/2014 depression Pertinent Findings depressed mood 10/24/2014 None depression Pertinent Findings Denies difficulty concentrating 10/24/2014 reports he has trouble remembering names depression Pertinent Findings helplessness 10/24/2014 tearful- talks about his depression Pertinent Findings hopelessness 10/24/2014 None depression Pertinent Findings Denies loss of interest in activities 10/24/2014 None depression Pertinent Findings sleep disturbance 10/24/2014 he can get to sleep but wakes up around 4:30am, has tried Aleve PM and Alprazolam, but doesnt stay asleep depression Pertinent Findings weight loss 10/24/2014 None anxiety Quality acute 10/24/2014 None anxiety Onset and Resolution ongoing 10/24/2014 None anxiety Onset of Symptom _ weeks ago 10/24/2014 August 03 anxiety Limitation on Activities moderately limits activities 10/24/2014 None anxiety Frequency of Episodes unchanged 10/24/2014 None anxiety Triggers of family member or close friend 10/24/2014 anxiety Pertinent Findings insomnia 10/24/2014 None anxiety Pertinent Findings upset stomach 10/24/2014 churning stomach depression Limitation on Activities does not limit activities 10/24/2014 None weight loss Onset of Symptom _ weeks ago 09/26/2014 since August 03 when . Reports usually around 182-184 weight loss Pertinent Findings depressed mood 09/26/2014 None depression Onset of Symptom _ weeks ago 09/26/2014 August 03, . States he has a hole in his heart depression Frequency of Episodes daily 09/26/2014 None depression Pertinent Findings depressed mood 09/26/2014 None depression Pertinent Findings Denies difficulty concentrating 09/26/2014 reports he has trouble remembering names depression Pertinent Findings Denies loss of interest in activities 09/26/2014 None depression Pertinent Findings helplessness 09/26/2014 tearfull- talks about his depression Pertinent Findings hopelessness 09/26/2014 None depression Pertinent Findings weight loss 09/26/2014 None depression Pertinent Findings sleep disturbance 09/26/2014 he can get to sleep but wakes up around 4:30am, has tried Aleve PM and Alprazolam, but doesnt stay asleep anxiety Onset of Symptom _ weeks ago 09/26/2014 August 03 anxiety Frequency of Episodes unchanged 09/26/2014 None anxiety Pertinent Findings insomnia 09/26/2014 None anxiety Pertinent Findings upset stomach 09/26/2014 churning stomach weight loss Onset and Resolution ongoing 09/26/2014 None weight loss Quality acute 09/26/2014 None weight loss Triggers mood change 09/26/2014 None weight loss Alleviating Factors change in dietary habits 09/26/2014 not eating much depression Quality acute 09/26/2014 None depression Onset and Resolution ongoing 09/26/2014 None depression Significant Medical Conditions traumatic event 09/26/2014 anxiety Onset and Resolution ongoing 09/26/2014 None anxiety Quality acute 09/26/2014 None anxiety Limitation on Activities moderately limits activities 09/26/2014 None anxiety Triggers of family member or close friend 09/26/2014 Advance Directives No Advance Directive data Encounters Encounter Performer Location Codes Date ([id number]) [id number] EST. PATIENT, LEVEL IV Diagnosis: Encounter for general adult medical examination without abnormal findings[ICD10: Z00.00] Diagnosis: Male erectile dysfunction, unspecified[ICD10: N52.9] Diagnosis: Mixed hyperlipidemia[ICD10: E78.2] Diagnosis: Encounter for screening for malignant neoplasm of prostate[ICD10: Z12.5] Diagnosis: Encounter for immunization[ICD10: Z23] [facility] CPT-4: 34179 03/19/2017 ([id number]) 23878 EST. PATIENT, LEVEL III Diagnosis: Encounter for general adult medical examination with abnormal findings[ICD10: Z00.01] [facility] CPT-4: 50824 04/22/2016 [id number]) [id number] EST. PATIENT, LEVEL IV Diagnosis: Encounter for general adult medical examination without abnormal findings[ICD10: Z00.00] Lucila Trevino MD, [facility] CPT-4: 57435 10/18/2015 ([id number]) 12731 EST. PATIENT, LEVEL III Diagnosis: Bicipital tendinitis, left shoulder[ICD10: M75.22] Leyda Trevino MD, [facility] CPT-4: 67485 06/14/2015 ([id number]) 04684 EST. PATIENT, LEVEL III Diagnosis: Generalized anxiety disorder[ICD10: F41.1] Diagnosis: Encounter for immunization[ICD10: Z23] Diagnosis: Primary osteoarthritis, right shoulder[ICD10: M19.011] Diagnosis: Bicipital tendinitis, left shoulder[ICD10: M75.22] Leyda Trevino MD, [facility] CPT-4: 71016 03/08/2015 ([id number] [id number] EST. PATIENT, LEVEL III Diagnosis: Anxiety[ICD9: 300.00] Diagnosis: Depression[ICD9: 311] Diagnosis: Weight loss[ICD9: 783.21] Lucila Trevino MD, [facility] CPT-4: 66098 10/24/2014 ([id number]) OFFICE VISIT, NEW - LEVEL 3 Diagnosis: Anxiety[ICD9: 300.00] Diagnosis: Depression[ICD9: 311] Diagnosis: Acid reflux[ICD9: 530.81] Lucila Trevino MD, [facility] CPT-4: 14229 09/26/2014 Plan of Care Planned Activity Notes Codes Status Date Visit Plan: Joint Injection - bilateral shoulders-Pt was given post - injection instructions. The pt has been advised to use anti- inflammatories post injection today, ice to the injected site, call if redness, warmth, or increased pain occurs at the site of injection. 06/05/2017 Visit Plan: Joint Injection - bilateral shoulders-Pt was given post - injection instructions. The pt has been advised to use anti- inflammatories post injection today, ice to the injected site, call if redness, warmth, or increased pain occurs at the site of injection. 06/05/2017 Appointment: Liudmila Pavon WPtel: [facility]5 [facility] (30 min) Complex 06/05/2017 Patient Education: Patient Medication Summary Completed 06/05/2017 Appointment: Liudmila Pavon WPtel: [id number] [facility] [facility] - Annual Wellness Visit 06/03/2017 Visit Plan: Well Adult - pt was counseled about diet, exercise, and encouraged to follow a heart healthy diet and increase activity level. The patient was instructed to RTC yearly for well adult exams and PRN for acute illnesses. The pt was also instructed to have yearly labs for check of cholesterol, thyroid, chem panel, CBC, and renal functioning. Hyperlipidemia- check labs 03/19/2017 Appointment: Luicla Rivas WPtel: [facility]5 [facility] [place] [address] Physical 03/19/2017 Patient Education: Patient Medication Summary Completed 03/19/2017 Visit Plan: Joint Injection - bilateral shoulders-Pt was given post - injection instructions. The pt has been advised to use anti- inflammatories post injection today, ice to the injected site, call if redness, warmth, or increased pain occurs at the site of injection. 11/25/2016 Appointment: Lucila Rivas WPtel: [facility]5 [facility] [place] [address] (30 min) Complex 11/25/2016 Patient Education: Patient Medication Summary Completed 11/25/2016 Visit Plan: Medicare Exam - today we discussed the patients past history, immunizations, preventative exams/evaluations - colonoscopy, fecal occult blood testing, routine labs for renal function, glucose, cholesterol, osteoporosis evaluations, cardiovascular testing and cancer screenings. We have also discussed mental health and the signs/symptoms of depression. The patient was advised of home safety evaluations and the need to make sure that as the aging process continues, we need to be aware of different ways to make the home a safer place to reside. The patient has also been counseled that exercise is necessary - and of utmost importance as we age to help decrease fall risk and to maintain independece in the home. Today we discussed the need for the patient to create paperwork for Advanced directives as well as for the patient to provide this office with a copy of her DOPA paperwork for health care surrogate. 05/28/2016 Appointment: Liudmila Pavon WPtel: [facility] - Annual Wellness Visit 05/28/2016 Patient Education: Patient Medication Summary Completed 05/28/2016 Visit Plan: Well Adult - pt was counseled about diet, exercise, and encouraged to follow a heart healthy diet and increase activity level. The patient was instructed to RTC yearly for well adult exams and PRN for acute illnesses. The pt was also instructed to have yearly labs for check of cholesterol, thyroid, chem panel, CBC, and renal functioning. Joint Injection -bilateral shoulders- Pt was given post - injection instructions. The pt has been advised to use anti-inflammatories post injection today, ice to the injected site, call if redness, warmth, or increased pain occurs at the site of injection. ED-samples of viagra 04/22/2016 Appointment: Lucila Rivas WPtel: [facility] [place] [address] (15 min) Moderate 04/22/2016 Patient Education: Patient Medication Summary Completed 04/22/2016 Visit Plan: Well Adult - pt was counseled about diet, exercise, and encouraged to follow a heart healthy diet and increase activity level. The patient was instructed to RTC yearly for well adult exams and PRN for acute illnesses. The pt was also instructed to have yearly labs for check of cholesterol, thyroid, chem panel, CBC, and renal functioning. ED-has used viagra in the past-RX sent to patient's pharmacy and instructed on use. 10/18/2015 Patient Education: Patient Medication Summary Completed 10/18/2015 Appointment: Leyda Trevino WPtel: [facility]9 [facility] (15 min) Moderate 10/11/2015 Visit Plan: Biceps tendinitis - pt to do exercises as directed, ant-inflammatories directed to be taken per RX instructions and pt to call if symptoms are not improved. 06/14/2015 Appointment: Leyda Trevino WPtel: [facility]6 [facility] [place] (15 min) Moderate 06/14/2015 Patient Education: Patient Medication Summary Completed 06/14/2015 Visit Plan: Arthritis- occasionally uncontrolled symptoms- recommend pt to take antiinflammatory as directed for pain control. Use tylenol for break through pain symptoms. Joint Injection - Pt was given post - injection instructions. The pt has been advised to use anti-inflammatories post injection today, ice to the injected site, call if redness, warmth, or increased pain occurs at the site of injection. Anxiety - stable. - no change in alprazolam dose. 03/08/2015 Appointment: Leyda Trevino WPtel: [facility] [place] (15 min) Moderate 03/08/2015 Patient Education: Patient Medication Summary Completed 03/08/2015 Visit Plan: Anxiety-controlled with xanax-no change in treatment Evifumtpwe-kpzeb-pjhbcamq stable-patient did not tolerate lexapro- monitor symptoms and instructed patient to call with worsening or uncontrolled symptoms. Patient verbalized understanding of plan. Weight loss-cooking for himself since passed, now eating better. Monitor and call if weight loss persists. 10/24/2014 Appointment: Follow up 10/24/2014 Patient Education: Patient Medication Summary Completed 10/24/2014 Visit Plan: Anxiety - the patient has uncontrolled anxiety and will benefit from an SSRI on a daily basis to attempt control of the symptoms of anxiety (tachycardia, overwhelming sensations, stress, insomnia, etc ). I also believe that the patient will benefit from very low dose of prn benzodiazepine. Pt is aware of the risks and benefits of treatment with the above medications. Depression - uncontrolled - Pt has been counseled about the diagnosis of depression, the potential causes, and risks associated with the diagnosis. The pt denies suicidal ideation, or plans. The patient has been counseled about treatment options, and understands the risks associated with treatment of depression, as well as the risks associated with NOT treating the depression. I believe the pt will benefit from medical intervention and an antidepressant has been appropriately prescribed for this patient. Esophageal Reflux - the patient has been counseled against excessive intake of caffeine, spicy foods, peppermint, and cinnamon - all of which can exacerbate esophageal reflux. The patient is to take medications as prescribed and call the office if the symptoms are not improving. Weight xtum-kqjzphm-sjnbcc up in 1 month 09/26/2014 Appointment: (S) New Patient 09/26/2014 Patient Education: Patient Medication Summary Completed 09/26/2014 Instructions Comment . Well Adult - pt was counseled about diet, exercise, and encouraged to follow a heart healthy diet and increase activity level. The patient was instructed to RTC yearly for well adult exams and PRN for acute illnesses. The pt was also instructed to have yearly labs for check of cholesterol, thyroid, chem panel, CBC, and renal functioning. Joint Injection-bilateral shoulders- Pt was given post - injection instructions. The pt has been advised to use anti-inflammatories post injection today, ice to the injected site, call if redness, warmth, or increased pain occurs at the site of injection. ED-samples of viagra . Anxiety-controlled with xanax-no change in treatment Dkdhxmtciz-uuhml-rhgafizi stable-patient did not tolerate lexapro-monitor symptoms and instructed patient to call with worsening or uncontrolled symptoms. Patient verbalized understanding of plan. Weight loss-cooking for himself since passed, now eating better. Monitor and call if weight loss persists. . Biceps tendinitis - pt to do exercises as directed, ant- inflammatories directed to be taken per RX instructions and pt to call if symptoms are not improved. . Medicare Exam - today we discussed the patients past history, immunizations, preventative exams/evaluations - colonoscopy, fecal occult blood testing, routine labs for renal function, glucose, cholesterol, osteoporosis evaluations, cardiovascular testing and cancer screenings. We have also discussed mental health and the signs/symptoms of depression. The patient was advised of home safety evaluations and the need to make sure that as the aging process continues, we need to be aware of different ways to make the home a safer place to reside. The patient has also been counseled that exercise is necessary - and of utmost importance as we age to help decrease fall risk and to maintain independece in the home. Today we discussed the need for the patient to create paperwork for Advanced directives as well as for the patient to provide this office with a copy of her DOPA paperwork for health care surrogate. . Well Adult - pt was counseled about diet, exercise, and encouraged to follow a heart healthy diet and increase activity level. The patient was instructed to RTC yearly for well adult exams and PRN for acute illnesses. The pt was also instructed to have yearly labs for check of cholesterol, thyroid, chem panel, CBC, and renal functioning. ED-has used viagra in the past-RX sent to patient's pharmacy and instructed on use. . Joint Injection - bilateral shoulders-Pt was given post - injection instructions. The pt has been advised to use anti-inflammatories post injection today, ice to the injected site, call if redness, warmth, or increased pain occurs at the site of injection. . Joint Injection - bilateral shoulders-Pt was given post - injection instructions. The pt has been advised to use anti-inflammatories post injection today, ice to the injected site, call if redness, warmth, or increased pain occurs at the site of injection. . Joint Injection - bilateral shoulders-Pt was given post - injection instructions. The pt has been advised to use anti-inflammatories post injection today, ice to the injected site, call if redness, warmth, or increased pain occurs at the site of injection. START ESCITALOPRAM 5MG DAILY CALL IF SYMPTOMS ARE NOT CONTROLLED AND WE CAN INCREASE IT CONTINUE TO USE APRAZOLAM 0.5MG NEEDED FOR INCREASED ANXIETY OR DEPRESSION SYMPTOMS COME BACK IN 1 MONTH FOR A WEIGHT CHECK AND SEE HOW ARE YOU FEELING DEXILANT 60MG DAILY (I GAVE YOU SAMPLES) TAKE 1 DAILY UNTIL GONE THEN RETURN TO [facility] OTC-CALL IF ACID REFLUX SYMPTOMS NOT CONTROLLD . Anxiety - the patient has uncontrolled anxiety and will benefit from an SSRI on a daily basis to attempt control of the symptoms of anxiety (tachycardia, overwhelming sensations, stress, insomnia, etc). I also believe that the patient will benefit from very low dose of prn benzodiazepine. Pt is aware of the risks and benefits of treatment with the above medications. Depression - uncontrolled - Pt has been counseled about the diagnosis of depression, the potential causes, and risks associated with the diagnosis. The pt denies suicidal ideation, or plans. The patient has been counseled about treatment options, and understands the risks associated with treatment of depression, as well as the risks associated with NOT treating the depression. I believe the pt will benefit from medical intervention and an antidepressant has been appropriately prescribed for this patient. Esophageal Reflux - the patient has been counseled against excessive intake of caffeine, spicy foods, peppermint, and cinnamon - all of which can exacerbate esophageal reflux. The patient is to take medications as prescribed and call the office if the symptoms are not improving. Weight ftsk-sxllzuu-ernqwr up in 1 month FLU [facility]OT [facility] LABS START NEXIUM DAILY IF ABDOMINAL PAIN RETURNS . Well Adult - pt was counseled about diet, exercise, and encouraged to follow a heart healthy diet and increase activity level. The patient was instructed to RTC yearly for well adult exams and PRN for acute illnesses. The pt was also instructed to have yearly labs for check of cholesterol, thyroid, chem panel, CBC, and renal functioning. Hyperlipidemia-check labs . Arthritis- occasionally uncontrolled symptoms- recommend pt to take antiinflammatory as directed for pain control. Use tylenol for break through pain symptoms. Joint Injection - Pt was given post - injection instructions. The pt has been advised to use anti-inflammatories post injection today, ice to the injected site, call if redness, warmth, or increased pain occurs at the site of injection. Anxiety - stable. - no change in alprazolam dose.
--- NOTE | 2017-10-29 18:01 | Electrophysiology Consultation ---
HPI-Cardiology Cardiology Consultation: Date of Consultation 10/29/17 Date of Admission Attending Physician Tory Sandhu MD Admitting Physician Leyda Trevino MD Consulting Physician Jose REYES MD HPI: Time Seen by Provider: 15:30 Chief Complaint: Dizziness, near-syncope This is a 77-year-old gentleman who is a patient of Dr. Trevino and Dr. Sandhu. Cardiac EP consultation is requested for near syncope and high degree AV block. Patient complains of significant dizziness and heart rates in the 20s. He complains of near syncope but denied syncope. He denies any chest pain or shortness of breath. He denies any significant cardiac or medical history. He is not on beta jaimee, digoxin or calcium channel blockers. Review of Systems-Cardiology Review of Systems Constitutional: As described under HPI; No As described under HPI, No no symptoms reported, No chills, No fever, No lightheadedness Eyes: No As described under HPI, No no symptoms reported, No blindness, No blurred vision, No contact lenses, No drainage, No decreased acuity, No foreign body sensation, No pain, No vision change Ears/Nose/Throat: No As described under HPI, No no symptoms reported, No chronic hearing loss, No ear discharge, No ear pain, No nasal drainage, No ulcerations Respiratory: No no symptoms reported; As described under HPI; No As described under HPI, No cough, No orthopnea, No shortness of breath, No SOB with excertion Cardiovascular: No no symptoms reported; As described under HPI; No As described under HPI, No chest pain, No edema, No irregular heart rate; lightheadedness; No palpitations; syncope Gastrointestinal: No no symptoms reported, No As described under HPI, No abdomen distended, No abdominal pain, No blood streaked bowels, No constipation , No diarrhea, No nausea, No vomiting, No stool coloration changes Genitourinary: No As described under HPI, No burning, No dysuria, No discharge , No frequency, No flank pain, No hematuria, No urgency Musculoskeletal: No no symptoms reported, No As describe under HPI, No back pain, No gout, No joint pain, No joint swelling, No muscle pain, No muscle stiffness, No neck pain, No other Skin: No no symptoms reported, No As described under HPI, No change in color, No change in hair/nails, No dryness, No lesions, No lumps, No rash, No other, No skin related problems, No ulcerations, No rash on exposed areas, No ulcerations on exposed areas Psychiatric/Neurological: No anxiety, No depression, No seizure, No focal weakness, No syncope Hematologic: No no symptoms reported, No As described under HPI, No anemia, No blood clots, No easy bleeding, No easy bruising, No swollen glands, No other, No bleeding abnormalities [facility] Hx Patient Social History Alcohol Use: Occasionally Uses Recreational Drug Use: No Smoking Status: Never a Smoker Recent Foreign Travel: No Recent Infectious Disease Expo: No Physical Abuse Screen: No Sexual Abuse: No Past Medical History PMH As described under Assessment. Allergies and Home Medications Allergies Coded Allergies: No Known Drug Allergies (Unverified , 10/29/17) Home Medications Esomeprazole Magnesium 20 Mg Capsule.dr, 20 MG PO DAILY PRN for HEARTBURN, ( Reported) Naproxen Na-Diphenhydramin HCl 1 Each Tablet, 1 TAB PO HS PRN for JOINT PAIN, ( Reported) Sildenafil Citrate 100 Mg Tablet, 50-100 MG PO UD PRN for ED, (Reported) Zinc 50 Mg Tablet, 200 MG PO DAILY, (Reported) [Steroid Shots] , INJ EVERY 3 MONTHS, (Reported) Patient Home Medication List Home Medication List Reviewed: Yes Physical Exam-Cardiology Physical Exam Vital Signs/I&O 10/29/17 10/29/17 10/29/17 10/29/17 13:10 13:22 14:08 15:42 Temp 97.1 98.2 Pulse 38 38 34 Resp 16 12 B/P (MAP) 131/66 (87) 139/62 (87) Pulse Ox 100 99 O2 Delivery Room Air Room Air Room Air 10/29/17 15:42 Pulse Ox 99 O2 Delivery Room Air Capillary Refill : Constitutional: No appears stated age; AAO x 3; No apparent distress, No PERRL , No well-developed, No well-nourished, No other HEENT: No PERRL, No normal ENT inspection, No TMs normal, No pharynx normal, No scleral icterus (R), No scleral icterus (L), No pale conjunctivae (R), No pale conjunctivae (L), No photophobia, No TM abnormal (R), No TM abnormal (L), No pharyngeal erythema, No tonsillar exudate, No other, No discharge, No EOMI, No hearing is well preserved, No hard of hearing, No oral hygience is good, No ulceration, No xanthelasmas are seen Neck: No non-tender, No full range of motion, No supple, No normal inspection, No carotid bruit, No limited range of motion, No lymphadenopathy (R), No lymphadenopathy (L), No tender lateral, No tender midline, No thyromegaly, No other, No carotid pulses are 2 + bilaterally, No with good upstrokes Respiratory: No accessory muscle use, No respiratory distress, No chest tender , No chest expansion is symmetric; chest is bilaterally symmetric; No lungs clear to percussion; lungs clear to auscultation; No crackles, No rhonchi, No rales, No stridor, No wheezing, No pleural rub, No other Cardiovascular: regular rate-rhythm, bradycardia, S1 and S2 Gastrointestinal: No tender, No soft, No round, No distended, No pulsatile mass , No organomegaly, No guarding, No rebound, No tenderness, No hernia, No mass, No audible bowel sounds, No abnormal bowel sounds, No abdominal bruits, No spleenomegaly, No other Rectal: deferred Extremities: No normal range of motion, No non-tender, No normal inspection, No pedal edema, No calf tenderness, No normal capillary refill, No pelvis stable , No calf tenderness, No inflammation, No pedal edema, No slow capillary refill , No swelling, No other, No abrasion, No clubbing, No cyanosis, No ecchymosis, No laceration, No no lower extremity edema bilateral, No significant edema, No tenderness, No wound Neurologic/Psychiatric: no motor/sensory deficits, alert, normal mood/affect, oriented x 3 Skin: No normal color, No warm/dry, No cyanosis, No cool, No diaphoresis, No damp, No ecchymosis, No jaundice, No mottled, No pallor, No rash, No tattoos/ piercings, No ulcerations, No rash on exposed areas, No ulcerations on exposed areas, No other Data Review Labs Laboratory Tests 10/29/17 13:35: White Blood Count 19.6H, Red Blood Count 4.52, Hemoglobin 14.2, Hematocrit 42, Mean Corpuscular Volume 93, Mean Corpuscular Hemoglobin 31, Mean Corpuscular Hemoglobin Concent 34, Red Cell Distribution Width 13.4, Platelet Count 256, Mean Platelet Volume 11.3H, Prothrombin Time 13.6, INR Comment 1.0, Activated Partial Thromboplast Time 26, Sodium Level 142, Potassium Level 4.8, Chloride Level 110H, Carbon Dioxide Level 26, Anion Gap 6, Blood Urea Nitrogen 19H, Creatinine 1.00, Estimat Glomerular Filtration Rate > 60, BUN/Creatinine Ratio 19, Glucose Level 109H, Calcium Level 9.5, Total Bilirubin 0.6, Aspartate Amino Transf (AST/SGOT) 118H, Alanine Aminotransferase (ALT/SGPT) 119H, Alkaline Phosphatase 57, Total Protein 6.9, Albumin 4.2, Thyroid Stimulating Hormone (TSH ) 0.86 10/29/17 16:27: Erythrocyte Sedimentation Rate 1 10/29/17 17:20: Lactic Acid Level 1.36 10/29/17 18:05: ECG Impression ECG Comment Sinus rhythm with high degree AV block. 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 A/P-Cardiology Assessment/Admission Diagnosis Near syncope, high degree AV block Plan Significant bradycardia with high degree AV block with evidence of distal conduction disease i.e. right bundle-branch block and left anterior fascicular block. Telemetry shows predominantly 2-1 AV block however numerous occasion he develops high degree AV block/third-degree AV block with heart rates in the 20s. Patient was dizzy even while sitting in a chair. He is not on any rate controlling agents. Echocardiogram shows normal EF. Discussed at length with the patient and recommended urgent dual chamber permanent pacemaker implantation. All risks and complication were discussed in detail including bleeding, vascular damage, perforation, pneumothorax. Once patient accepted all risks, we'll go ahead with the procedure. Mildly elevated LFTs: Liver ultrasound requested by Dr. Sandhu. Leukocytosis: Negative ESR. No evidence of infection. Thank you for your consultation. Please call me if you have any questions. Lashell Reyes MD, FACP, FACC, FSCAI, FHRS, CCDS Interventional Cardiology Cardiac Electrophysiology Vascular Medicine and Endovascular Interventions Clinical Quality Measures DVT/VTE Risk/Contraindication: Risk Factor Score Per Nursin RFS Level Per Nursing on Admit: 2=Moderate Jose REYES MD October 29, 2017 18:01
--- NOTE | 2017-10-29 18:06 | Cardiac Procedure Note-CS/ASA ---
Pre-Procedure Note Pre-Op Procedure Note H&P Reviewed The H&P was reviewed, patient examined and no changes noted. Date H&P Reviewed: October 29, 2017 Time H&P Reviewed: 18:05 Conscious Sedation Pre-Proced Time Reviewed: 18:05 ASA Class: 3 Airway Mallampati Classification: ([place] appropriate class) I. II. III, IV Lungs Heart ASA score ASA 1: a normal healthy patient ASA 2: a patient with a mild systemic disease (mid diabetes, controlled hypertension, obesity ASA 3: a patient with a severe systemic disease that limits activity (angina , COPD, prior Myocardial infarction) ASA 4: a patient with an incapacitating disease that is a constant threat to life (CHF, renal failure) ASA 5: a moribund patient not expected to survive 24 hrs. (ruptured aneurysm) ASA 6: a declared brain patient whose organs are being harvested. For emergent operations, add the letter E after the classification Grade 1 Sedation Plan: Analgesia, Amnesia, Plan communicated to team members, Discussed options with patient/fam, Discussed risks with patient/fam Note The patient is an appropriate candidate to undergo the planned procedure, sedation, and anesthesia. The patient immediately re-assessed prior to indication. Jose MEDEIROS MD October 29, 2017 18:06
[2017-10-29 18:30] LABS: BILIRUBIN,URINE NEGATIVE (NEGATIVE); CLARITY,URINE CLEAR; COLOR,URINE YELLOW; GLUCOSE, URINE (UA) NEGATIVE (NEGATIVE); KETONES,URINE NEGATIVE (NEGATIVE); LEUKOCYTE ESTERASE ,URINE NEGATIVE (NEGATIVE); NITRITE,URINE NEGATIVE (NEGATIVE); PH,URINE 7 (5-9); PROTEIN,URINE NEGATIVE (NEGATIVE); UROBILINOGEN,URINE NORMAL (NORMAL)
[2017-10-29 18:46] LABS: SQUAMOUS EPITHELIAL CELL,UR RARE /HPF
[2017-10-29] MEDS ORDERED: NS IV 1000 ML 1,000 ML IV ONE (18:49)
[2017-10-29] MEDS ORDERED: LIDOCAINE 1% INJ 20 ML 20 ML VIAL ONE (18:55)
[2017-10-29] MEDS ORDERED: MIDAZOLAM 5 MG/5 ML (VERSED) VIAL ONE ×2 (18:56→19:25)
[2017-10-29] MEDS ORDERED: fentaNYL INJECTION 100 MCG/2 ML AMP ONE (18:56)
[2017-10-29] MEDS ORDERED: ceFAZolin 1,000 MG (ANCEF) VIAL ONE (18:56)
[2017-10-29] MEDS ORDERED: HEParin (CATH LAB) 1,000 ML IV ONE (18:57)
[2017-10-29] MEDS ORDERED: ceFAZolin 1,000 MG (ANCEF) VIAL IV ONE (19:00)
[2017-10-29] MEDS ORDERED: BACITRACIN INJECTION 50,000 UNIT, SODIUM CHLORIDE 0.9% IRRIGATIO 500 ML IR ONE ×2 (19:00)
[2017-10-29] MEDS ORDERED: ATROPINE INJECTION 1 MG/10 ML SYR (ABBOTT) ONE (19:34)
[2017-10-29] MEDS ORDERED: NEO/POLY/BAC (NEOSPORIN) OINT 15 GM TUBE ONE (20:15)
--- NOTE | 2017-10-29 20:26 | Permanent Pacemaker Implant ---
Dual Chamber Pacemaker Implant PROCEDURE PHYSICIAN: Lashell Reyes MD DUAL CHAMBER PACEMAKER IMPLANTATION: DATE OF PROCEDURE: 10/29/17 REFERRING PHYSICIAN: Dr. Sandhu ATTENDING PHYSICIAN: Dr. Trevino INDICATION: Near Syncope, Hemodynamically unstable High degree AV block, Asystole. PREOPERATIVE DIAGNOSIS: Near Syncope, Hemodynamically unstable High degree AV block, Asystole. POSTOPERATIVE DIAGNOSIS: Successful dual-chamber permanent pacemaker implantation. HISTORY: This is a 77-year-old gentleman who presented with near syncope and high degree AV block. His lowest heart rate was in the 20s. Patient was significantly dizzy even while sitting. EKG showed significant distal conduction disease with right bundle-branch block and left anterior fascicular block. Patient was significantly hypotensive with a high degree AV block and systolic blood pressure was 50 mmHg. Patient had 7 second asystole during the procedure. Echocardiogram showed normal LV function. Dual-chamber permanent pacemaker was recommended. PROCEDURE PERFORMED: 1. Dual-chamber permanent pacemaker implantation. 2. Fluoroscopy. 3. Central venous access. ANESTHESIA: Local anesthesia, conscious sedation. COMPLICATIONS: None. ESTIMATED BLOOD LOSS:20 mL. SPECIMENS: None. ORAL ANTICOAGULATION: None. FLUOROSCOPY TIME: 5.5 minutes. FLUOROSCOPY DOSE: 22 mgy. CONTRAST DOSE: 0. PROCEDURE DETAILS: The patient is a 77 male and after all of the patients questions were answered, the patient was brought to the EP Lab. The patient's left chest was prepped and draped in sterile fashion. A 2 inch horizontal incision was made 1 cm below the clavicle and dissection carried down to the pectoralis fascia. Using the modified Seldinger technique and under fluoroscopy guidance, the anterior aspect of the left axillary vein was accessed 2 times. The J wires were secured to the drapes with a mosquito clamp. A 6-Mosotho sheath was introduced over one of the J-wires. The RV lead was then inserted. The RV lead was directed across the tricuspid valve to the apical septal portion of the right ventricle. The position was checked in HARINI and COOL views. The screw was deployed and the lead connected to the business programmer. Close sensing and pacing thresholds were obtained. Diaphragmatic pacing was ruled out. The lead was secured with 2-0 silk ties to the underlying muscle and fascia. Next, a 6-Mosotho sheath was introduced through the remaining J-wire. An atrial lead was then introduced and guided to the level of the right appendage. The screw was deployed and the lead was connected to the interrogator. Good sensing and pacing thresholds were obtained. Diaphragmatic pacing was ruled out. The leads were secured with 2-0 silk ties to the underlying muscle and fascia. The leads were connected to the device in a hermetic fashion. The device and leads were placed in the pocket. Aggressive irrigation with saline solution was done. The device was secured to the underlying muscle and fascia with a 2-0 silk tie. interrogation of the device revealed good integrity of all the leads and good connections. The wound was then closed using 2 layers. The first layer was interrupted 2-0 absorbable Vicryl suture. The last layer was a single subcuticular layer with 4- 0 Vicryl suture. Half inch Steri-Strips and a small dressing were then applied to the wound. The patient tolerated the procedure well and was returned to the recovery room in stable condition with stable vital signs. DEVICE INFORMATION: Edora 8 DR-T Biotronik, reference number [id number], serial number [id number], PID 91. RA LEAD: Solia S 53 Biotronik. Reference number [id number]. Serial number [id number]. RV LEAD: Solia S 60 Biotronik. Reference number [id number], serial number [id number]. PER-OPERATIVE DEVICE INTERROGATION: P wave 4 mV, R-wave 14 mV. Impedance RA 565, RV 721. Threshold RA 1.4V at 0.4 ms. RV 1.0 V at 0.4 ms. IMMEDIATE POSTOPERATIVE DEVICE INTERROGATION: P wave 4.3 mV, R-wave not done due to complete heart block. Impedance RA 565, RV 682. Threshold space RA space 1.0 V at 0.4 ms, RV space 0.8 V at 0.4 ms, Device DDD 60. Paced AV interval 200 ms, sensed AV interval 180 ms. PLAN: The patient transferred to the ICU. We will continue with two more doses of IV antibiotics. We will check a chest x-ray today and interrogate the device in the morning. The patient will continue on oral antibiotics for 5 days. Lashell Reyes MD, RS, CCDS Cardiac Electrophysiology Jose REYES MD October 29, 2017 8:26 pm
[2017-10-29] MEDS ORDERED: PATIENT MAY USE OWN MEDS, ALL PO SCH (20:30)
--- NOTE | 2017-10-29 20:56 | Diagnostic Imaging Report ---
INDICATION: Post pacemaker placement AP chest shows normal heart size and vascularity. The lungs are clear. There is no effusion or pneumothorax. There has been placement of a pacemaker since the earlier exam. Leads are in the right atrium and right ventricle. IMPRESSION: Interval placement of a pacemaker. No complications are seen. Dictated by: Dictated on workstation # [id number]
[2017-10-29] MEDS ORDERED: ONDANSETRON 4 MG/2 ML (SDV) Z0FRAN IVP ONE (21:30)
[2017-10-29] MEDS ORDERED: ACETAMINOPHEN 500 MG TAB (TYLENOL) PO ONE (21:30)
[2017-10-30] VITALS: BP 96/56
[2017-10-30 01:00] VITALS: BP 96/49
[2017-10-30 02:00] VITALS: BP 106/60
[2017-10-30] MEDS: ceFAZolin 1 GM/NS 50 ML IVPB IV SCH ×4 (02:58→10:35)
[2017-10-30 03:35] VITALS: BP 110/66
[2017-10-30 03:53] LABS: HEMOGLOBIN 13.3 G/DL (13.3-17.7); RED BLOOD COUNT 4.32 10^6/uL (4.35-5.85); RED CELL DISTRIBUTION WIDTH 13.9 % (10.0-14.5); WHITE BLOOD COUNT 14.3 10^3/uL (4.3-11.0)
[2017-10-30 04:12] LABS: ALANINE AMINOTRANSFERASE 87 U/L (0-55); ALBUMIN 3.8 GM/DL (3.2-4.5); ALKALINE PHOSPHATASE 56 U/L (40-136); BILIRUBIN,TOTAL 0.5 MG/DL (0.1-1.0); BUN/CREATININE RATIO 20; CALCIUM 8.8 MG/DL (8.5-10.1); CARBON DIOXIDE 19 MMOL/L (21-32); CHLORIDE 111 MMOL/L (98-107); CREATININE SERUM 0.97 MG/DL (0.60-1.30); GFR ESTIMATED > 60; GLUCOSE 129 MG/DL (70-105); POTASSIUM 4.4 MMOL/L (3.6-5.0); SODIUM 140 MMOL/L (135-145)
[2017-10-30 08:00] VITALS: BP 132/70
--- NOTE | 2017-10-30 08:23 | Short Stay Summary ---
History of Present Illness History of Present Illness Reason for visit/HPI 77 years old gentleman was seen in my office then direct admitted due to high- grade AV block, underwent an exercise EKG stress test which progressed from 2-1 AV block to 3:1 AV block. I consulted Dr. Reyes for evaluation, who proceeded with pacemaker implantation, patient had 7 second pause during the procedure, he was severely bradycardic prior to the procedure and he was complaining of dizziness and lightheadedness. Noted to have elevated WBC and elevated liver enzymes, Dr. Trevino was consulted. During the hospital stay patient reported improvement, site is healing well. Denied any further episodes. Date of Admission October 29, 2017 at 12:55 Date of Discharge October 31, 2079 Time Seen by Provider: 08:16 Attending Physician Tory Sandhu MD Admitting Physician Asad Trevino MD Consult Dr. Eric Trevino Allergies and Home Medications Allergies Coded Allergies: No Known Drug Allergies (Unverified , 10/29/17) Home Medications Esomeprazole Magnesium 20 Mg Capsule.dr, 20 MG PO DAILY PRN for HEARTBURN, ( Reported) Naproxen Na-Diphenhydramin HCl 1 Each Tablet, 1 TAB PO HS PRN for JOINT PAIN, ( Reported) Sildenafil Citrate 100 Mg Tablet, 50-100 MG PO UD PRN for ED, (Reported) Zinc 50 Mg Tablet, 200 MG PO DAILY, (Reported) [Steroid Shots] , INJ EVERY 3 MONTHS, (Reported) Patient Home Medication List Home Medication List Reviewed: Yes Past Dcbcivl-Cdgrxs-Wjwkht Hx Patient Social History Marrital Status: Employed/Student: retired Alcohol Use: Occasionally Uses Number of Drinks Today: 0 Alcohol Beverage of Choice: Beer, Whiskey Recreational Drug Use: No Smoking Status: Never a Smoker Physical Abuse Screen: No Sexual Abuse: No Recent Foreign Travel: No Contact w/other who traveled: No Recent Hopitalizations: No Recent Infectious Disease Expo: No Seasonal Allergies Seasonal Allergies: No Surgeries Yes (LTKA, R Knee Scope x 4, R great toe has a Maykel) Respiratory Yes (HX of Shrapnel in Chest and left leg) Cardiovascular No Neurological No Genitourinary No Gastrointestinal No Musculoskeletal Yes Arthritis Endocrine History of Endocrine Disorders: No HEENT History of HEENT Disorders: No Loss of Vision: Left Hearing Impairment: Denies Cancer No Psychosocial History of Psychiatric Problem: No Integumentary History of Skin or Integumenta: No Blood Transfusions History of Blood Disorders: No Adverse Reaction to a Blood Tr: No Constitutional: no symptoms reported, see HPI, dizziness, malaise, weakness EENTM: see HPI, no symptoms reported Respiratory: see HPI; No cough; dyspnea on exertion; No hemoptysis, No orthopnea, No phlegm, No short of breath, No stridor, No wheezing, No other Cardiovascular: see HPI; No chest pain, No edema, No Hx of Intervention, No palpitations, No syncope, No vascular heart diseas, No other Gastrointestinal: no symptoms reported, see HPI Genitourinary: no symptoms reported, see HPI Musculoskeletal: no symptoms reported, see HPI Skin: no symptoms reported, see HPI Psychiatric/Neurological: No Symptoms Reported, See HPI Physical Exam Vital Signs Vital Signs - First Documented 10/29/17 13:10 Temp 97.1 Pulse 38 Resp 16 B/P (MAP) 131/66 (87) Pulse Ox 100 O2 Delivery Room Air Capillary Refill : General Appearance: No Apparent Distress, WD/WN Eyes: Bilateral Eye Normal Inspection, Bilateral Eye PERRL, Bilateral Eye EOMI HEENT: PERRL/EOMI, TMs Normal, Normal ENT Inspection, Pharynx Normal Neck: Full Range of Motion, Normal Inspection, Non Tender, Supple, Carotid Bruit Respiratory: Chest Non Tender, Lungs Clear, Normal Breath Sounds, No Accessory Muscle Use, No Respiratory Distress Cardiovascular: Regular Rate, Rhythm, No Edema, No Gallop, No JVD, No Murmur, Normal Peripheral Pulses Gastrointestinal: Normal Bowel Sounds, No Organomegaly, No Pulsatile Mass, Non Tender, Soft Back: Normal Inspection, No CVA Tenderness, No Vertebral Tenderness Extremity: Normal Capillary Refill, Normal Inspection, Normal Range of Motion, Non Tender, No Calf Tenderness, No Pedal Edema Neurologic/Psychiatric: Alert, Oriented x3, No Motor/Sensory Deficits, Normal Mood/Affect Skin: Normal Color, Warm/Dry Lymphatic: No Adenopathy Clinical Quality Measures End of Life/Advance Care Plan: Advance Care discuss with: patient Admission Status Admission Status: Observation DVT/VTE Risk/Contraindication: Risk Factor Score Per Nursin RFS Level Per Nursing on Admit: 2=Moderate Short Stay Diagnosis Discharge Diagnosis-Short Stay Admission Diagnosis: Severe bradycardia Mobitz 2 second-degree AV block Leukocytosis Elevated liver enzymes Final Discharge Diagnosis: Cardiac pacemaker High-grade AV block/Mobitz 2 second-degree AV block Leukocytosis Elevated liver enzymes Conclusion Labs Laboratory Tests 10/29/17 13:35: White Blood Count 19.6H, Red Blood Count 4.52, Hemoglobin 14.2, Hematocrit 42, Mean Corpuscular Volume 93, Mean Corpuscular Hemoglobin 31, Mean Corpuscular Hemoglobin Concent 34, Red Cell Distribution Width 13.4, Platelet Count 256, Mean Platelet Volume 11.3H, Prothrombin Time 13.6, INR Comment 1.0, Activated Partial Thromboplast Time 26, Sodium Level 142, Potassium Level 4.8, Chloride Level 110H, Carbon Dioxide Level 26, Anion Gap 6, Blood Urea Nitrogen 19H, Creatinine 1.00, Estimat Glomerular Filtration Rate > 60, BUN/Creatinine Ratio 19, Glucose Level 109H, Calcium Level 9.5, Total Bilirubin 0.6, Aspartate Amino Transf (AST/SGOT) 118H, Alanine Aminotransferase (ALT/SGPT) 119H, Alkaline Phosphatase 57, Total Protein 6.9, Albumin 4.2, Thyroid Stimulating Hormone (TSH ) 0.86 10/29/17 16:27: Erythrocyte Sedimentation Rate 1 10/29/17 17:20: Lactic Acid Level 1.36 10/29/17 18:05: Urine Color YELLOW, Urine Clarity CLEAR, Urine pH 7, Urine Specific [place] 1.010L, Urine Protein NEGATIVE, Urine Glucose (UA) NEGATIVE, Urine Ketones NEGATIVE, Urine Nitrite NEGATIVE, Urine Bilirubin NEGATIVE, Urine Urobilinogen NORMAL, Urine Leukocyte Esterase NEGATIVE, Urine RBC (Auto) NEGATIVE, Urine RBC NONE, Urine WBC NONE, Urine Squamous Epithelial Cells RARE, Urine Crystals NONE , Urine Bacteria NONE, Urine Casts NONE, Urine Mucus NEGATIVE, Urine Culture Indicated NO 10/30/17 03:00: White Blood Count 14.3H, Red Blood Count 4.32L, Hemoglobin 13.3, Hematocrit 41, Mean Corpuscular Volume 94, Mean Corpuscular Hemoglobin 31, Mean Corpuscular Hemoglobin Concent 33, Red Cell Distribution Width 13.9, Platelet Count 253, Mean Platelet Volume 12.0H, Sodium Level 140, Potassium Level 4.4, Chloride Level 111H, Carbon Dioxide Level 19L, Anion Gap 10, Blood Urea Nitrogen 19H, Creatinine 0.97, Estimat Glomerular Filtration Rate > 60, BUN/Creatinine Ratio 20, Glucose Level 129H, Calcium Level 8.8, Total Bilirubin 0.5, Aspartate Amino Transf (AST/SGOT) 53H, Alanine Aminotransferase (ALT/SGPT) 87H, Alkaline Phosphatase 56, Total Protein 6.0L, Albumin 3.8 Conclusion/Plan Severe bradycardia with high-grade AV block, progressed to Mobitz 2 heart block , had 7 seconds pause during pacemaker implantation. Underwent dual-chamber pacemaker implantation with no complications. Has been doing well, recovering well. No new complaint Leukocytosis, could be secondary to a recent steroid injection in the shoulder. White count are improving, blood cultures were done. I will continue monitoring as an outpatient Elevated liver enzymes, unknown etiology, hepatitis profile were sent, ultrasound was negative. Monitor as an outpatient. Recent multiple tick bites, tick panel was sent. Dizziness and lightheadedness, generalized fatigue and shortness of breath, underwent stress test, within 3 minutes patient was unable to perform any further with profound bradycardia. Chronotropic incompetence. Will need Lexiscan stress test as an outpatient. Borderline hypotension. Monitor as an outpatient. Copy Copies To 1: ASAD TREVINO MD, BASHAR J MD Oct 30, 2017 08:22
[2017-10-30] MEDS ORDERED: CEPH-507 PO (08:32)
[2017-10-30] MEDS ORDERED: ASPI-983 PO (08:32)
--- NOTE | 2017-10-30 10:30 | Cardiology Progress Note ---
Cardiology SOAP Progress Note Subjective: No further cardiac symptoms. Objective: I&O/Vital Signs 10/29/17 10/29/17 10/29/17 10/29/17 23:00 23:30 23:40 23:40 Temp 98.4 Pulse 71 66 B/P (MAP) 94/58 (70) 98/52 (67) Pulse Ox 96 95 98 O2 Delivery Room Air Room Air Room Air 10/30/17 10/30/17 10/30/17 10/30/17 00:00 01:00 01:00 02:00 Pulse 66 70 66 66 Resp 22 B/P (MAP) 96/56 (69) 96/49 (65) 106/60 (75) Pulse Ox 97 94 95 O2 Delivery Room Air Room Air Room Air 10/30/17 10/30/17 10/30/17 10/30/17 03:00 03:01 03:35 06:59 Temp 98.2 Pulse 65 62 Resp 18 B/P (MAP) 110/66 (81) Pulse Ox 98 94 O2 Delivery Room Air Room Air 10/30/17 10/30/17 10/30/17 08:00 08:00 09:00 Temp 98.9 O2 Delivery Room Air Room Air Room Air 10/30/17 00:00 Intake Total 1300 ml Output Total 650 ml Balance 650 ml Weight (Pounds): 178 Weight (Ounces): 8.0 Weight (Calculated Kilograms): [id number] Constitutional: No appears stated age; AAO x 3; No apparent distress, No PERRL , No well-developed, No well-nourished, No other Respiratory: No accessory muscle use, No respiratory distress, No chest tender , No chest expansion is symmetric; chest is bilaterally symmetric; No lungs clear to percussion; lungs clear to auscultation; No crackles, No rhonchi, No rales, No stridor, No wheezing, No pleural rub, No other Cardiovascular: regular rate-rhythm, bradycardia, S1 and S2 Gastrointestional: No tender, No soft, No round, No distended, No pulsatile mass, No organomegaly, No guarding, No rebound, No tenderness, No hernia, No mass, No audible bowel sounds, No abnormal bowel sounds, No abdominal bruits, No spleenomegaly, No other Extremities: No normal range of motion, No non-tender, No normal inspection, No pedal edema, No calf tenderness, No normal capillary refill, No pelvis stable , No calf tenderness, No inflammation, No pedal edema, No slow capillary refill , No swelling, No other, No abrasion, No clubbing, No cyanosis, No ecchymosis, No laceration, No no lower extremity edema bilateral, No significant edema, No tenderness, No wound Neurologic/Psychiatric: no motor/sensory deficits, alert, normal mood/affect, oriented x 3 Skin: No normal color, No warm/dry, No cyanosis, No cool, No diaphoresis, No damp, No ecchymosis, No jaundice, No mottled, No pallor, No rash, No tattoos/ piercings, No ulcerations, No rash on exposed areas, No ulcerations on exposed areas, No other Results/Procedures: Labs Laboratory Tests 10/29/17 13:35: White Blood Count 19.6H, Red Blood Count 4.52, Hemoglobin 14.2, Hematocrit 42, Mean Corpuscular Volume 93, Mean Corpuscular Hemoglobin 31, Mean Corpuscular Hemoglobin Concent 34, Red Cell Distribution Width 13.4, Platelet Count 256, Mean Platelet Volume 11.3H, Prothrombin Time 13.6, INR Comment 1.0, Activated Partial Thromboplast Time 26, Sodium Level 142, Potassium Level 4.8, Chloride Level 110H, Carbon Dioxide Level 26, Anion Gap 6, Blood Urea Nitrogen 19H, Creatinine 1.00, Estimat Glomerular Filtration Rate > 60, BUN/Creatinine Ratio 19, Glucose Level 109H, Calcium Level 9.5, Total Bilirubin 0.6, Aspartate Amino Transf (AST/SGOT) 118H, Alanine Aminotransferase (ALT/SGPT) 119H, Alkaline Phosphatase 57, Total Protein 6.9, Albumin 4.2, Thyroid Stimulating Hormone (TSH ) 0.86 10/29/17 16:27: Erythrocyte Sedimentation Rate 1 10/29/17 17:20: Lactic Acid Level 1.36 10/29/17 18:05: Urine Color YELLOW, Urine Clarity CLEAR, Urine pH 7, Urine Specific [place] 1.010L, Urine Protein NEGATIVE, Urine Glucose (UA) NEGATIVE, Urine Ketones NEGATIVE, Urine Nitrite NEGATIVE, Urine Bilirubin NEGATIVE, Urine Urobilinogen NORMAL, Urine Leukocyte Esterase NEGATIVE, Urine RBC (Auto) NEGATIVE, Urine RBC NONE, Urine WBC NONE, Urine Squamous Epithelial Cells RARE, Urine Crystals NONE , Urine Bacteria NONE, Urine Casts NONE, Urine Mucus NEGATIVE, Urine Culture Indicated NO 10/30/17 03:00: White Blood Count 14.3H, Red Blood Count 4.32L, Hemoglobin 13.3, Hematocrit 41, Mean Corpuscular Volume 94, Mean Corpuscular Hemoglobin 31, Mean Corpuscular Hemoglobin Concent 33, Red Cell Distribution Width 13.9, Platelet Count 253, Mean Platelet Volume 12.0H, Sodium Level 140, Potassium Level 4.4, Chloride Level 111H, Carbon Dioxide Level 19L, Anion Gap 10, Blood Urea Nitrogen 19H, Creatinine 0.97, Estimat Glomerular Filtration Rate > 60, BUN/Creatinine Ratio 20, Glucose Level 129H, Calcium Level 8.8, Total Bilirubin 0.5, Aspartate Amino Transf (AST/SGOT) 53H, Alanine Aminotransferase (ALT/SGPT) 87H, Alkaline Phosphatase 56, Total Protein 6.0L, Albumin 3.8 A/P: Assessment/Dx: Near syncope, high degree AV block, Tick bite, Leukocytosis Plan: Successful dual chamber permanent pacemaker implantation done yesterday. Chest x-ray does not show any complications. Device interrogation this morning was normal. Patient will be discharged on Keflex 500 mg 3 times a day for 5 days. He will follow Dr. Sandhu in the office. Patient had unstable high degree AV block with complete heart block with hemodynamic compromise with a systolic blood pressure of 50 mmHg while lying flat. The patient also had a prolonged episode of asystole for over 7 seconds. Mildly elevated LFTs: Liver ultrasound requested by Dr. Sandhu. Leukocytosis: Negative ESR. No evidence of infection. Serology for Lyme's disease is still pending. Lyme disease can be rarely associated with AV block however the patient has known distal conduction disease as evidenced by right bundle branch block and left anterior fascicular block. Also the tick bite according to the patient was only for a second or so with no other evidence of Lyme's disease. Secondly dual chamber permanent pacemaker was strongly indicated due to asystole and hemodynamic compromise with third-degree AV block. All of this was discussed at length with the patient and family. Thank you for your consultation. Please call me if you have any questions. Lashell Reyes MD, FACP, FACC, FSCAI, FHRS, CCDS Interventional Cardiology Cardiac Electrophysiology Vascular Medicine and Endovascular Interventions Jose REYES MD Oct 30, 2017 10:30 am
[2017-10-31 10:46] LABS: HEPATITIS C ANTIBODY C Non-Reactive (Non-Reactive)
== END 2017-10-30 11:40 | disposition home or self-care (01) ==
LOC: SDC 13:05 → ICU 13:05 → SDC 10-30 11:40 → UNDODISOB 10-30 11:40
PROVIDERS: ATTEND Internal Medicine Cardiovascular Disease
DX: I44.1 Atrioventricular block, second degree (principal); R00.1 Bradycardia, unspecified; R74.8 Abnormal levels of other serum enzymes; D72.829 Elevated white blood cell count, unspecified; R55 Syncope and collapse; R42 Dizziness and giddiness; R53.83 Other fatigue; R06.02 Shortness of breath; I95.9 Hypotension, unspecified
CPT/HCPCS: 33208; 36415; 71045; 71046; 76705; 80053; 80074; 81000; 83605; 84443; 85027; 85610; 85652; 85730; 86618; 86666; 86668; 86757; 87040; 93017; 93306

== ENCOUNTER → 2017-11-20 | Outpatient (CLI) | payer MEDICARE ==
[~2017-11-20] MED LIST changes: +ASPI-983 PO; +CEPH-507 PO; +ESOM20CA58 PO; +NAPR1TAB25 PO; +SILD100T67 PO; +ZINC50TA2 PO; +[UNRECOGNIZED DRUG - REMARK] INJ; -ceFAZolin INJECTION 1,000 MG in NS (IVPB) 50 ML IV SCH
--- NOTE | 2017-11-20 11:46 | Diagnostic Imaging Report ---
INDICATION: Arrhythmia EXAM: PA and lateral chest FINDINGS: There is a left subclavian dual chamber pacemaker with leads projecting over the right atrium and right ventricle. Lead positions appear unchanged from 10/29/2017. Heart size and pulmonary vascularity are normal. The lungs are clear. IMPRESSION: No acute abnormalities in the chest. Dictated by: Dictated on workstation # [id number]
== END ==
LOC: RAD 09:36
PROVIDERS: ATTEND Internal Medicine Cardiovascular Disease
DX: T82.120A Displacement of cardiac electrode, initial encounter (principal); I49.9 Cardiac arrhythmia, unspecified
CPT/HCPCS: 71046

== ENCOUNTER → 2018-01-18 | Outpatient (CLI) | payer MEDICARE ==
[~2018-01-18] VITALS: Ht 180.3 cm; Wt 79.4 kg
[~2018-01-18] MED LIST changes: +CATHETER FLUSH 10 ML SYR IV PRN; +REGADENOSON 0.4 MG/5 ML SYR (LEXISCAN) IV ONE
[2018-01-18 09:06] VITALS: BP 132/80
[2018-01-18 09:12] VITALS: BP 145/81
--- NOTE | 2018-01-18 13:35 | STRESS TEST ---
DATE OF SERVICE: 01/18/2018 LEXISCAN MYOVIEW STRESS TEST REPORT Baseline heart rate is 60. Baseline blood pressure 132/80. Baseline EKG is ventricular paced rhythm. In summary, the patient was injected with 10.45 mCi of technetium-99 Myoview and the resting images were obtained. Then, the patient received 0.4 mg of Lexiscan followed by 33.0 mCi of technetium-99 Myoview. Throughout the test, the patient will continue to have paced rhythm. No EKG changes were noted. The resting and stress images were reviewed and compared in the short axis, horizontal long axis, and vertical long axis views. Review of the images showed good radiotracer uptake with diaphragmatic attenuation with no significant ischemia or infarction. SSS is 2, SDS 1, TID value 1.0. On the gated images, the left ventricle appeared to be normal size with normal contractility. Calculated ejection fraction is 55%. CONCLUSION: 1. The patient tolerated Lexiscan well. 2. Baseline ventricular paced rhythm persisted throughout the test. 3. No ischemia or infarction on SPECT images. 4. Normal left ventricular size with normal contractility. Calculated ejection fraction is 55%. Job ID: [id number] DocumentID: [id number] Dictated Date: 01/18/2018 11:40:31 Portable Track Line Marker Date: 01/18/2018 13:34:49 Dictated By: CHERYL LEIVA MD
== END ==
LOC: CARD 07:20
PROVIDERS: ATTEND Internal Medicine Cardiovascular Disease
DX: I44.1 Atrioventricular block, second degree (principal); R00.1 Bradycardia, unspecified; R55 Syncope and collapse; R06.02 Shortness of breath; Z95.0 Presence of cardiac pacemaker
CPT/HCPCS: 78452; 93017

== ENCOUNTER → 2020-09-03 | Outpatient (CLI) | payer MEDICARE ==
[~2020-09-03] MED LIST changes: +ASPI-1238 PO; -ASPI-983 PO; -CATHETER FLUSH 10 ML SYR IV PRN; -REGADENOSON 0.4 MG/5 ML SYR (LEXISCAN) IV ONE
== END ==
LOC: CARD 14:00
PROVIDERS: ATTEND Internal Medicine Cardiovascular Disease
DX: I11.9 Hypertensive heart disease without heart failure (principal); I34.0 Nonrheumatic mitral (valve) insufficiency
CPT/HCPCS: 93306

== ENCOUNTER → 2022-04-03 | Outpatient (CLI) | payer MEDICARE ==
--- NOTE | 2022-04-03 09:48 | Diagnostic Imaging Report ---
EXAMINATION: US Abdomen limited. TECHNIQUE: Multiple real-time grayscale images were obtained over the right upper quadrant in various projections. REASON FOR EXAM: Right upper quadrant abdominal pain. COMPARISON: 10/29/2017. FINDINGS: The liver is normal in size and shape. The liver echogenicity is within normal limits. There are no focal lesions. No intrahepatic biliary dilatation is present. The common bile duct is not visualized due to overlying bowel gas. The main portal vein is hepatopedal. No ascites in the upper abdomen. Layering echogenic material is seen within the gallbladder lumen. There is thickening of the wall of the gallbladder measuring 0.4 cm. The sonographic Mauro sign is negative. The visualized portion of the head of the pancreas are within normal limits. The body and tail of the pancreas are not well visualized due to overlying bowel gas. The visualized portions of the IVC and aorta appear normal. The right kidney measures approximately 9.3 cm in length and has a normal appearance. IMPRESSION: 1. Gallbladder wall thickening with gallbladder sludge present. The sonographic Mauro sign is negative. 2. Nonvisualization of the common bile duct due to overlying bowel gas. Dictated by: Dictated on workstation # [id number]
== END ==
LOC: RAD 07:36
PROVIDERS: ATTEND Family Medicine
DX: K82.8 Other specified diseases of gallbladder (principal)
CPT/HCPCS: 76705

== ENCOUNTER 2022-04-30 05:30 | Outpatient (CLI) | payer MEDICARE ==
[~2022-04-30] VITALS: Ht 181 cm; Wt 83.0 kg
== END 2022-05-02 12:12 | disposition home or self-care (01) ==
LOC: PREOP 05:30
PROVIDERS: ATTEND Surgery
DX: Z01.818 Encounter for other preprocedural examination (principal)

== ENCOUNTER 2022-05-07 09:03 | Day surgery (SDC) | payer MEDICARE ==
[~2022-05-07] VITALS: Ht 181 cm; Wt 83.0 kg
[2022-05-07] VITALS (11 sets, daily range): BP systolic 120–143; BP diastolic 55–80
[2022-05-07] MEDS ORDERED: ceFAZolin INJECTION 2,000 MG in NS (IVPB) 50 ML IV ONE (09:45)
--- NOTE | 2022-05-07 10:21 | Progress Note-Pre Operative ---
Pre-Operative Progress Note Date of Available H&P: Apr 21, 2022 Date H&P Reviewed: May 07, 2022 Time H&P Reviewed: 10:21 History & Physical: H&P Reviewed, Patient Examed, No changes noted Pre-Operative Diagnosis: ruq abd pain, cholelithiasis TYLER HOLM DO May 07, 2022 10:21
[2022-05-07] MEDS ORDERED: BUP/EPI 0.25% 1:200,000 (MARCAINE) 30 ML VIAL INJ ONE (10:40)
[2022-05-07] MEDS ORDERED: IOHEXOL 300 MG/ML 30 ML (OMNIPAQUE 300) VIAL INJ ONE (10:44)
[2022-05-07] MEDS ORDERED: ONDANSETRON 4 MG/2 ML (SDV) Z0FRAN ONE (10:50)
[2022-05-07] MEDS ORDERED: proPOfol 200 MG/20 ML (DIPRIVAN) VIAL IV ONE (10:50)
[2022-05-07] MEDS ORDERED: LIDOCAINE PF 2% 5 ML (XYLOCAINE) VIAL ONE (10:50)
[2022-05-07] MEDS ORDERED: ROCURONIUM 10 MG/ML 5 ML SYRINGE IV ONE (10:50)
[2022-05-07] MEDS ORDERED: fentaNYL INJ 100 MCG/2 ML AMP ONE (10:51)
[2022-05-07] MEDS ORDERED: MIDAZOLAM 2 MG/2 ML (VERSED) VIAL IV ONE (11:00)
[2022-05-07] MEDS ORDERED: MIDAZOLAM 2 MG/2 ML (VERSED) VIAL ONE (11:03)
[2022-05-07] MEDS: LACTATED RINGERS 1,000 ML IV PRN ×2 (11:17→12:33)
[2022-05-07] MEDS ORDERED: GLYCOPYRROLATE 0.2 MG/ML (ROBINUL) 2 ML VIAL ONE (12:27)
[2022-05-07] MEDS ORDERED: NEOSTIGMINE 3 MG/3 ML VIAL ONE (12:27)
[2022-05-07] MEDS ORDERED: ACHD5005 PO (12:28)
[2022-05-07] MEDS ORDERED: PHENYLEPHRINE 100 MCG/ML 10 ML (ANESTHESIA) SYR ONE (12:28)
[2022-05-07] MEDS ORDERED: DOCU-143 PO (12:28)
--- NOTE | 2022-05-07 12:29 | Discharge Inst-Simple/Standard ---
Discharge Inst-Standard Discharge Medications New, Converted or Re-Newed RX: Transmitted to Pharmacy Patient Instructions/Follow Up Plan of Care/Instructions/FU: 2 weeks saqib Activity as Tolerated: No Discharge Diet: Regular Diet Other Inst to Patient Follow up Appt: Make appointment for 2 weeks. Instructions: No lifting greater than 10 pounds. No strenuous activity. May shower in 24 hours, no tub bath or soaking. Use incentive spirometer at home as directed. No Smoking Skin/Wound Care: You have special glue over incision, it will fall off on it's own. Symptoms to Report: Appetite Changes, Extremity Discoloration, Numbness/Tingling, Swelling Increased, Bleeding Excessive, Eyesight Changes, Pain Increased, Urine Color Change, Constipation(Persistent), Fever over 101 degree F, Pain/Pressure in chest, Urinating Difficulty, Cough Up/Vomit Blood, Heart Beat Irreg/Pounding, Pain/Pressure in jaw, Vaginal Bleeding Increase, Cramps in feet or legs, Lightheadedness, Pain/Pressure in shoulder, Diarrhea(Persistent), Memory Changes Suddenly, Questions/Concerns, Weight gain consecutive days, Dizziness/Fainting, Nausea/Vomiting, Shortness of Breath, Weight gain over 2 pounds. If eyes or skin turn yellow notify physician. If questions or concerns contact your physician Or seek help at emergency department. TYLER HOLM DO May 07, 2022 12:29
--- NOTE | 2022-05-07 12:31 | Progress Note-Post Operative ---
Post-Operative Progess Note Surgeon (s)/Air Tube Releaser (s) Surgeon TYLER HOLM DO Air Tube Releaser: Dr. Dempsey to assist in retraction dissection and closure. Pre-Operative Diagnosis ruq abd pain, cholelithiasis Post-Operative Diagnosis same Procedure & Operative Findings Date of Procedure 05/07/22 Procedure Performed/Findings PROCEDURE: Laparoscopic cholecystectomy with intraoperative cholangiogram. COMPLICATIONS: None. PROCEDURE: The patient was taken to the operating suite and was prepped and draped in sterile fashion. A surgical pause was performed. Just superior to the umbilicus, a 12 mm incision was made. Dissection was taken down to the fascia, which was then scored and grasped with a Sushila and the abdomen was then entered. A 0 Vicryl suture was placed in a [id number]-[id number]-[id number] fashion and a Erickson trocar was placed and secured. Pneumoperitoneum was achieved. A 5mm trochar place in the subxyphoid and 2 in the right upper quadrant. The gallbladder was then grasped and elevated. Adhesions were taken down off of the gallbladder with blunt and cautery dissection. The cystic duct, and cystic artery were then dissected out. Clip was placed on the distal portion of the cystic duct which was then partially transected. An arrow catheter was inserted into the duct. The cholangiogram was then performed. No filing defects and contrast made its way into the duodenum. Catheter removed. Clips were placed on proximal portion of the cystic duct and then the duct was then transected. Clips were placed along the proximal and distal portion of the cystic artery which was then transected. Hook cautery was used to dissect the gallbladder from the gallbladder fossa achieving hemostasis. The gallbladder was placed in an Endobag and removed through the 12 mm trocar site. The abdomen was then reinspected. Copious amounts of irrigation were used to irrigate the abdomen and there were no signs of active bleeding. Hemostasis had been achieved. The 12 mm fascial defect was then closed with 0 Vicryl suture that had been placed in a [id number] fashion. The abdomen was then desufflated, the trocars were removed. The abdomen was then washed and dried. The skin was then closed using 4-0 Monocryl in a subcuticular fashion. The abdomen was washed and dried and Skin Affix was place over incisions. Patient tolerated the procedure well without any complications and was taken to the recovery room in stable condition. Anesthesia Type general Estimated Blood Loss Estimated blood loss (mL): minimal Specimens/Packing Specimens Removed gallbladder TYLER HOLM DO May 07, 2022 12:30
--- NOTE | 2022-05-07 12:42 | Anesthesia-General Post-Op ---
General Patient Condition Mental Status/LOC: Same as Preop Cardiovascular: Satisfactory Nausea/Vomiting: Absent Respiratory: Satisfactory Pain: Controlled Complications: Absent Post Op Complications Complications None Follow Up Care/Instructions Patient Instructions None needed. Anesthesia/Patient Condition Patient Condition Patient is doing well, no complaints, stable vital signs, no apparent adverse anesthesia problems. No complications reported per nursing. LADARIUS NAIR CRNA May 07, 2022 12:42
[2022-05-07] MEDS ORDERED: MEPERIDINE (DEMEROL) INJ 50 MG/ML IVP ONE (12:45)
[2022-05-07] MEDS ORDERED: fentaNYL INJ 100 MCG/2 ML AMP IVP ONE (12:45)
[2022-05-07] MEDS ORDERED: morphine INJ 10 MG/ML 1ML (SYR OR VIAL) IVP ONE (12:45)
[2022-05-07] MEDS ORDERED: ONDANSETRON 4 MG/2 ML (SDV) Z0FRAN IVP PRN (12:45)
[2022-05-07] MEDS ORDERED: morphine INJ 10 MG/ML 1ML (SYR OR VIAL) ONE (12:51)
[2022-05-07] MEDS ORDERED: HYDROcodone/APAP 5 MG/325 MG (LORTAB) TAB ONE (13:55)
[2022-05-07] MEDS ORDERED: HYDROcodone/APAP 5 MG/325 MG (LORTAB) TAB PO ONE (14:00)
--- NOTE | 2022-05-07 16:19 | Diagnostic Imaging Report ---
INDICATION: History of right upper quadrant abdominal pain. COMPARISON: Liver gallbladder sonogram dated 04/03/2022. TOTAL FLUOROSCOPY TIME: 9 seconds. TOTAL NUMBER OF FLUOROSCOPIC IMAGES SAVED: 47. FINDINGS: Multiple intraoperative image intensifier and digital subtraction images of the right upper abdominal quadrant were obtained during intraoperative cholangiogram. Images provided show contrast opacifying the intrahepatic and extrahepatic biliary ducts. No large intraluminal filling defects or strictures are seen. There is emptying of contrast into the small bowel, as expected. Please note, interpreting radiologist was not present during the procedure. IMPRESSION: Fluoroscopic guidance provided intraoperatively as above. Dictated by: Dictated on workstation # [id number]
== END 2022-05-07 15:45 | disposition home or self-care (01) ==
LOC: SDC 09:03
PROVIDERS: ATTEND Surgery
DX: K80.10 Calculus of gallbladder with chronic cholecystitis without obstruction (principal); F17.290 Nicotine dependence, other tobacco product, uncomplicated; F17.220 Nicotine dependence, chewing tobacco, uncomplicated; Z95.0 Presence of cardiac pacemaker
CPT/HCPCS: 76000; 87081; 94664

== ENCOUNTER → 2022-10-01 | Outpatient (CLI) | payer MEDICARE ==
[~2022-10-01] MED LIST changes: +ACHD5005 PO; +DOCU-143 PO
== END ==
LOC: CARD 09:05
PROVIDERS: ATTEND Internal Medicine Cardiovascular Disease
DX: I11.9 Hypertensive heart disease without heart failure (principal); Z95.0 Presence of cardiac pacemaker
CPT/HCPCS: 93306

== ENCOUNTER → 2022-10-08 | Outpatient (CLI) | payer MEDICARE ==
[~2022-10-08] MED LIST changes: +CATHETER FLUSH 10 ML SYR IVP PRN; +REGADENOSON 0.4 MG/5 ML SYR (LEXISCAN) IV ONE
[2022-10-08 13:21] VITALS: BP 154/96
--- NOTE | 2022-10-08 15:42 | Cardiology Stress Test Report ---
Stress Test Report Date of Procedure/Referring: Date of Procedure: October 08, 2022 PCP Asad Trevino MD Admitting Physician Admitting Physician: Attending Physician: Elizabeth López Indications: CP Baseline Heart Rate: 69 Baseline Blood Pressure: Blood Pressure Systolic: 154 Blood Pressure Diastolic: 96 Baseline Vitals Vital Signs Date Time Temp Pulse Resp B/P (MAP) Pulse Ox O2 Delivery O2 Flow Rate FiO2 10/08/22 13:21 73 154/96 (115) Baseline EKG: Baseline EKG: LBBB Summary After explaining the procedure to the patient, he signed a consent and then brought to the stress nuclear laboratory. Patient received 0.4 mg Lexiscan for stress test, ECG, heart rate and blood pressure were monitored continuously. Resting and stress dose of radio tracer were injected, imaging was acquired and reviewed in short axis, horizontal long axis and vertical long axis views. TID: 1.03 SSS: 5 SDS: 1 EF: 56 Patient tolerated Lexiscan well Baseline paced rhythm persisted during test Fixed defect at the inferoapical segment, no significant ischemia or infarction on SPECT images Normal left ventricular size, ejection fraction 56% Copy Copies To 1: ASAD TREVINO MD, BASHAR J MD October 08, 2022 15:42
== END ==
LOC: CARD 11:28
PROVIDERS: ATTEND Physician Assistant
DX: I10 Essential (primary) hypertension (principal); Z95.0 Presence of cardiac pacemaker
CPT/HCPCS: 78452; 93017; A9502